=== PATIENT | male | born 1935 | race Caucasian/White ===

== ENCOUNTER 2016-11-07 22:39 | Inpatient (IN) | payer OTHER ==
--- NOTE | ~2016-11-07 | CN ---
Consultation Report [facility] [address] [place]. [address] NAME: NICOLE SMITH JR : 39 STATUS : ADM Tristian PAT#: [id number] AGE: 81 ADM/REG DATE : 11/07/16 MR#: [id number] REPORT SERV DATE: 11/09/16 DICTATED BY: RADHA HAGEN DATE: 11/08/16 REPORT STATUS : Draft TRANSCRIBED BY: MODL DATE: 11/08/16 CONSULT REPORT DATE OF CONSULTATION: 11/08/2016 REASON FOR CONSULTATION: Multivessel coronary artery disease. HISTORY OF PRESENT ILLNESS: This is a pleasant 81-year-old, male, who has a history of coronary artery disease, status post CAB x3 in 1999 at [facility]. He also has a history of high blood pressure, hyperlipidemia, and type 2 diabetes mellitus. He has recently been diagnosed with bladder cancer and has been undergoing radiation treatments under the care of Dr. Hadley. He has previously seen by Dr. Hua, but did not tolerate chemotherapy. He presented to the emergency room on 11/07/2016 with complaints of chest pain and nausea and vomiting. He was found to have an elevated troponin at 0.5. Taken for cardiac catheterization today by Dr. Sanchez and have multivessel coronary artery disease including a 70% stenosis to his left main, 70% mid circumflex, and 90% 2nd obtuse marginal. Chronic total occlusion of his proximal RCA. He had a patent MUÑIZ to LAD graft, a total occlusion of the SVG to the 1st diagonal, and a total occlusion of his SVG to PDA. There is no mention of valvular abnormality. An echocardiogram was performed today but report is currently pending. CT Surgery was consulted for redo CAB. The patient did have a CT angiogram of his aorta to rule out any type of aortic abnormality or dissection, and it subsequently showed some hyperdensities in his liver concerning for metastatic disease. Currently, the patient is recovering after cardiac catheterization with no complaints of chest pain or shortness of breath. He is on a heparin drip. PAST MEDICAL HISTORY: As mentioned above, coronary artery disease, status post CAB; hypertension; hyperlipidemia; obesity; type 2 diabetes mellitus; and bladder cancer. SURGICAL HISTORY: CAB x3 in 1999 at [facility], appendectomy, and bilateral carpal tunnel. SOCIAL HISTORY: He is with several grown children. No history of alcohol abuse, use of illicit drugs, or tobacco. FAMILY HISTORY: Significant for diabetes. ALLERGIES: QUINIDINE, MSG, HYDROCHLOROTHIAZIDE, TRIAMTERENE, AND PENICILLIN. HOME MEDICATIONS: Aspirin 325 mg p.o. daily, vitamin D 2000 units p.o. weekly, cranberry capsule 425 mg p.o. daily, Kandace/tamsulosin 0.5/0.4 mg one cap p.o. daily, Lyndsey 180 mg p.o. daily, Neurontin 300 mg p.o. three times a day, hydrocodone 5/325 one tab p.o. q.4 hours as needed, iron tablets as directed, Imdur 30 mg p.o. daily, levothyroxine 75 mcg p.o. daily, Glucophage 1000 mg p.o. twice a day, Toprol-XL 25 mg p.o. daily, multivitamin one tab p.o. daily, nitroglycerin 0.4 mg tabs use as directed, and simvastatin 40 mg p.o. at Consultation Report [place] [id number] [place]. [address] NAME: NICOLE SMITH : 37 STATUS : ADM Tristian PAT#: [id number] AGE: 81 ADM/REG DATE : 11/07/16 MR#: [id number] REPORT SERV DATE: 11/09/16 DICTATED BY: RADHA HAGEN DATE: 11/08/16 REPORT STATUS : Draft TRANSCRIBED BY: NICK DATE: 11/08/16 bedtime. REVIEW OF SYSTEMS: A 10-point review of systems was obtained and is negative other than HPI. PHYSICAL EXAMINATION: VITAL SIGNS: From today, temperature 97.9, heart rate 75, blood pressure 115/57, respiratory rate 16, and O2 saturation 97% on 2 L. White blood cell count 13.9, hemoglobin 14.5, hematocrit 42.7, and platelets 166. Sodium 140, potassium 3.9, chloride 104, bicarbonate 24, BUN 12, creatinine 0.87, glucose 156, and hemoglobin A1c 6.9. GENERAL: A pleasant, obese, male, in no acute distress. HEENT: Head is normocephalic and atraumatic. Sclerae are clear. NECK: Supple. NEURO: Alert and oriented x3. Pupils exhibit PERRLA. LUNGS: Clear to auscultation bilaterally with normal effort. CARDIAC: S1, S2. No murmurs, rubs, or gallops. ABDOMEN: Soft, obese, and nontender with active bowel sounds. EXTREMITIES: Free of cyanosis, clubbing, or edema. ASSESSMENT AND PLAN: This is a 81-year-old male with history of coronary artery disease, status post CAB x3 in 1999, has been followed by Dr. Sanchez as an outpatient, came in with chest pain and nausea and vomiting, elevated troponin consistent with NSTEMI. He was taken for cardiac catheterization today which showed multivessel disease as described above and total occlusion of his SVG to PDA graft and SVG to 1st diagonal graft. The patient needs a redo CAB x2 or 3 vessels. We discussed the plan of care with Dr. Mccray. We will begin our workup. We would like evaluation by [facility] as he is known to Dr. Hua and Dr. Hadley with a history of bladder cancer, currently undergoing radiation treatment, and he has had a recent CT angiogram of his aorta which subsequently found some hyperdensities in his liver concerning for possible metastases. We would need to rule this out prior to proceeding with surgery. We will also get a CT angiogram of his chest to look at his internal mammary artery as well as carotid ultrasound and bilateral lower extremity venous mapping. As for right now, he would be considered a high risk redo CAB with ACS risk calculates at around 4.1% mortality and a 23.4% morbidity mortality. I discussed this in length with the patient and his family, and they are willing to proceed with surgery although they are concerned about how he would do with a redo surgery. We would like to thank you for this consultation. We will plan to await further workup prior to making plans for surgery with anticipated surgery later this week as long as there is no evidence of metastatic disease. NSW/MODL Radha Blackburn Consultation Report [place] [id number] [place] [address] NAME: NICOLE SMITH JR : 37 STATUS : ADM Tristian PAT#: [id number] AGE: 81 ADM/REG DATE : 11/07/16 MR#: [id number] REPORT SERV DATE: 11/09/16 DICTATED BY: RADHA HAGEN DATE: 11/08/16 REPORT STATUS : Draft TRANSCRIBED BY: NICK DATE: 11/08/16 AIMEE Hagen / [id number] CC: MD Mina Timmons Jr., D.O.
--- NOTE | ~2016-11-07 | DS ---
Discharge Summary [place] [address] [place]. [address] NAME: NICOLE SMITH JR : 37 STATUS : DIS IN PAT#: [id number] AGE: 81 ADM/REG DATE : 11/07/16 MR#: [id number] REPORT SERV DATE: 11/25/16 DICTATED BY: LARY ROTHMAN DATE: 11/24/16 REPORT STATUS : Draft TRANSCRIBED BY: MODL DATE: 11/24/16 ADMISSION DATE: 11/07/2016 DISCHARGE DATE: 11/24/2016 DIAGNOSES OF DISCHARGE: 1. Coronary artery disease, status post redo CABG, status post cardiogenic shock. 2. Non-ST myocardial infarction. 3. Acute cholecystitis, asymptomatic. 4. Clostridium difficile colitis. 5. Diabetes type 2, insulin dependent. 6. Hyperlipidemia. 7. Postoperative respiratory failure, resolved. CONSULTANTS ON THE CASE: Dr. Sanchez, Cardiology; Dr. Mccray, Cardiothoracic Surgery; Dr. Roc Henry and Dr. Josh Carrizales, Infectious Disease; Dr. Rollins, General Surgery. PROCEDURES DONE DURING THIS HOSPITALIZATION: Include: 1. Redo of the CABG. 2. Cardiac catheterization performed on 11/08/2016 showing multivessel disease with recommendation of coronary artery bypass surgery. OTHER TESTS DONE DURING THIS HOSPITALIZATION: Include CT of the abdomen and pelvis on 11/07/2016 showing cholelithiasis, but no acute cholecystitis. CTA of the aorta that showed some ectasia, but no aneurysm. No other abnormalities that could be identified. Degenerative joint disease, osteoarthritis. Liver CT with or without contrast showed gallstones, but also some concern that an acute cholecystitis might be present. Chest x- ray, portable, has shown that there was some vascular congestion postoperatively. HOSPITAL COURSE: Mr. Smith is a very pleasant 81 years old gentleman, who has been admitted on 11/08/2016 with chest pain, nausea, vomiting, and diarrhea. It is very important to note that during this hospitalization, the patient has been diagnosed with multivessel disease that required a CABG performed by Dr. Mccray from CT Surgery on 11/12/2016 due to a non-ST PA diagnosed on admission with redo of CABG. The patient, as I said, was admitted initially with nausea, vomiting, and diarrhea, and presumed diagnosis of gastroenteritis. However, also, some atypical chest pain. The patient has been seen by Dr. Sanchez from Cardiology Service. Subsequently, he did have a cardiac catheterization, which showed that the patient has multivessel disease and recommendation was for him to have redo of the CABG. Cardiology felt that the patient may have a non-ST PA and he underwent CABG by Dr. Mccray. Postoperatively, the patient developed some cardiogenic shock that required extensive pressors as well as some balloon pump subsequently in ICU, he has been followed by Critical Care. He has been extubated, slowly weaned from pressors and ionotropic agent as well as diuretics. The patient, however, developed also nausea, vomiting, and diarrhea. CT initially showed that the patient did have some acute cholecystitis. So as a result, he has been started on antibiotics and an Infectious Disease consult with Dr. Henry has been requested. The patient initially has been started on cefepime and Flagyl, and a Surgery consult has been requested. It is important to note that subsequently after antibiotics, Discharge Summary [address] [address] NAME: NICOLE SMITH : 37 STATUS : DIS IN PAT#: [id number] AGE: 81 ADM/REG DATE : 11/07/16 MR#: [id number] REPORT SERV DATE: 11/25/16 DICTATED BY: LARY ROTHMAN DATE: 11/24/16 REPORT STATUS : Draft TRANSCRIBED BY: NICK DATE: 11/24/16 the patient developed diarrhea and as a result, the patient's stools have been checked and found to have been C diff positive, for which Dr. Henry stopped the antibiotics and placed him on oral vancomycin. Due to his acute cholecystitis, the patient has been seen in consult by Dr. Rollins for Surgery. The patient, however, improved with antibiotic treatment and remained asymptomatic and indication for surgery at the present time has been made due to the fact that the patient required CABG and fairly extensive postoperative recovery. He has been started on a diet, and he advance as tolerated. He did not have any nausea or vomiting. No abdominal pain. His diarrhea resolved and as a result, the patient remained asymptomatic, and so the plan was to withhold any cholecystectomy at this time until the patient improves and until Dr. Sanchez will evaluate the patient. Dr. Rollins can be seeing the patient as an outpatient after Cardiology clears him for possible cholecystectomy. So obviously, the patient continued to improve and he has been transferred out of the unit to a monitored bed. The patient started to work with Physical Therapy and recommendation for inpatient rehab has been done as well. The patient has been evaluated by [facility] and on 11/24/2016, the patient has been ready and approved to be transferred to inpatient rehab. MEDICATIONS AT DISCHARGE: Would include ascorbic acid 1000 mg p.o. b.i.d.; aspirin 81 p.o. daily; Lipitor 80 mg at bedtime; Plavix 75 p.o. daily; vitamin D 2000 units p.o. Tuesday; Avodart 0.5 mg p.o. with breakfast; also gabapentin 300 mg p.o. t.i.d.; insulin sliding scale level 2; Synthroid 75 mcg p.o. daily; Claritin 10 mg p.o. daily; multivitamin one tablet p.o. daily; Lopressor 25 b.i.d.; Senokot two tablets p.o. b.i.d. p.r.n. constipation; Flomax 0.4 p.o. daily; vancomycin 125 p.o. q.6 hours for two weeks, then 125 p.o. every eight hours for one week, then 125 p.o. q.12 hours for one week, then 125 p.o. daily for one week; zinc sulfate 220 mg p.o. daily as well as Tylenol p.r.n.; hydrocodone p.r.n.; Zofran p.r.n. The patient has been advised to follow up with his primary care provider, Dr. Mina Garber, in one week after discharge. Followup appointment with Dr. Sanchez, Cardiology, in two to three weeks after discharge. Followup appointment with Dr. Mccray from CT Surgery in four weeks after discharge. Followup appointment with Dr. Rollins from Surgery in four to six weeks after discharge. That has been discussed extensively with the patient. All the questions have been answered in full. I did spend more than 30 minutes at discharging the patient Nicole Smith, medication reconciliation, discharge summary, discharge instruction, and written prescriptions as well. CF/MODL Lary Rothman M.D. / [id number] CC: Lary Rothman M.D. Discharge Summary [address] [place]. [address] NAME: NICOLE SMITH JR : 37 STATUS : DIS IN PAT#: [id number] AGE: 81 ADM/REG DATE : 11/07/16 MR#: [id number] REPORT SERV DATE: 11/25/16 DICTATED BY: LARY ROTHMAN DATE: 11/24/16 REPORT STATUS : Draft TRANSCRIBED BY: MODL DATE: 11/24/16 Mina Garber Jr., D.O. Raulito Rollins M.D. MD Artur Eastman III, M.D., [facility], [facility]
--- NOTE | ~2016-11-07 | OP ---
Record Of Operation [facility] [address] [place]. [address] NAME: NICOLE SMITH JR : 37 STATUS : ADM IN PAT#: [id number] AGE: 81 ADM/REG DATE : 11/07/16 MR#: [id number] REPORT SERV DATE: 11/15/16 DICTATED BY: RADHA HAGEN DATE: 11/15/16 REPORT STATUS : Draft TRANSCRIBED BY: NICK DATE: 11/15/16 DATE OF PROCEDURE: 11/15/2016 PROCEDURE REPORT This is Radha Hagen, nurse practitioner, with [facility]. PROCEDURE PERFORMED: Removal of intra-aortic balloon pump. HISTORY AND PHYSICAL: This is a 81-year-old male who has a history of coronary artery disease, status post CAB, presented on 11/07/2016 with NSTEMI, was taken for redo CAB on 11/12/2016, by Dr. James Mccray. The patient was showing signs of cardiogenic shock, so an intraaortic balloon pump was placed. Today is postop day three, and he is no longer on Primacor. Balloon pump is at one to three and he is on five of dobutamine. Balloon pump was changed to one to four with pressures and cardiac output staying stable. Patient meets criteria to have intraaortic balloon pump removed. PROCEDURE IN DETAIL: The patient is sedated, but arousable. The procedure was explained to him. He was positioned in a supine position. Pedal pulses and left femoral groin pulse were identified and marked, Lu BRAVO at the bedside. The balloon pump was placed and two standby sutures holding tubing in place were removed. The balloon pump was then extracted and removed via the left groin. Manual pressure was held with no significant bleeding at this site. Pressure was held for 30 minutes until hemostasis was obtained. Then pressure was released. Pressure bandage was placed. Vital signs remained stable throughout the entire procedure. The patient tolerated it well. JAYLENE/NICK Radha Hagen NP / [id number] CC: MD Mina Montalvo Jr., Patricia.OSarah
--- NOTE | ~2016-11-07 | HP ---
History And Physical [place] [address] [place]. [address] NAME: NICOLE SMITH JR : 37 STATUS : ADM Tristian PAT#: [id number] AGE: 81 ADM/REG DATE : 11/07/16 MR#: [id number] REPORT SERV DATE: 11/08/16 DICTATED BY: JOSE RAMON MARIN DATE: 11/08/16 REPORT STATUS : Draft TRANSCRIBED BY: MODL DATE: 11/08/16 DATE OF ADMISSION: 11/07/2016 CHIEF COMPLAINT: Chest pain, nausea, vomiting, and diarrhea. HISTORY OF PRESENT ILLNESS: This is a 81-year-old gentleman with history of hypertension, diabetes, hyperlipidemia, and coronary disease, presenting with chest pain, nausea, vomiting, and diarrhea. The patient reports that he was going about a fairly normal day up until two in the afternoon when he started having a sudden onset of sharp chest pain. It was quite intense, and the patient was actually worried about having a heart attack. The patient then started having intractable nausea, vomiting as well as diarrhea where the patient was having vomiting and diarrhea at the same time. The patient really did not notice any shortness of breath or palpitations. The pain was pretty much isolated to the central chest as well as abdomen. The patient came to the ER for further evaluation and care. In the ER, the patient was found to be afebrile and hemodynamically stable. Initial lab evaluation was actually all very benign. CT of the abdomen and pelvis was also nonacute. The patient was given some morphine antiemetics and GI cocktail, which relieved a lot of his symptoms. However, the patient was still quite worried about a possible heart attack, and the patient was still complaining of sharp chest pains that Internal Medicine consultation was requested for admission of the patient for further evaluation and care. REVIEW OF SYSTEMS: The patient denies any fevers or chills. Also, 14-point review of systems reviewed and negative other than mentioned above. MEDICATIONS: The list is still pending at this time. ALLERGIES: 1. QUINIDINE. 2. MONOSODIUM GLUTAMATE. 3. HYDROCHLOROTHIAZIDE. 4. TRIAMTERENE. 5. PENICILLIN V. PAST MEDICAL HISTORY: 1. Hypertension. 2. Hyperlipidemia. 3. Diabetes type 2. 4. Coronary artery disease, for which the patient follows with Dr. Sanchez. PAST SURGICAL HISTORY: 1. Triple bypass surgery. 2. Appendectomy. 3. Bilateral carpal tunnel release. History And Physical [address] [place]. [address] NAME: NICOLE SMITH JR : 37 STATUS : ADM Tristian PAT#: [id number] AGE: 81 ADM/REG DATE : 11/07/16 MR#: [id number] REPORT SERV DATE: 11/08/16 DICTATED BY: JOSE RAMON MARIN DATE: 11/08/16 REPORT STATUS : Draft TRANSCRIBED BY: NICK DATE: 11/08/16 FAMILY HISTORY: Diabetes. SOCIAL HISTORY: The patient does not smoke, drink alcohol, or use any illicit drugs. The patient lives at home with his . PHYSICAL EXAMINATION: VITAL SIGNS: Temperature 97.3, blood pressure 188/80, pulse 63, respiratory rate is 12, saturating 100% on room air. GENERAL: The patient is alert and oriented x3 with no focal neurologic deficits. The patient is awake, does not appear to be in acute distress, and he is cooperative. NECK: No JVD. No lymphadenopathy. Normal thyroid. CHEST: There is a midline sternotomy scar but otherwise no tenderness to palpation. LUNGS: Clear to auscultation bilaterally with normal respiratory effort on room air. CARDIOVASCULAR: Regular rate and rhythm with no murmurs, rubs, or gallops, and PMI is nondisplaced. ABDOMEN: Soft, nontender with active bowel sounds and no organomegaly. EXTREMITIES: No edema. Normal distal pulses. No calf tenderness. SKIN: Clean, dry, warm, and intact. LABORATORY DATA: Sodium is 141, potassium 3.9, chloride 104, BUN 16, creatinine 1.09, glucose 186, calcium 9.8. Magnesium 1.4. LFTs and lipase are within normal limits. White blood cell count is 9.8, hemoglobin 14.4, platelets 153. INR is 1.1. Troponin is less than 0.02. Urinalysis is negative. CT of the abdomen and pelvis was nonacute. ASSESSMENT: This is a 81-year-old gentleman with history of hypertension, diabetes, hyperlipidemia, and coronary artery disease, presenting with acute nausea, vomiting, diarrhea, and chest pain. 1. Acute nausea, vomiting, and diarrhea, likely secondary to viral gastroenteritis. The patient's symptoms are controlled in the ER. 2. Atypical chest pain, likely gastrointestinal in origin, especially since it responded to GI cocktail. Still, the patient is very anxious and is very worried about a possible heart attack despite reassurance. 3. Hypertension. 4. Hyperlipidemia. 5. Diabetes type 2. 6. Coronary artery disease. PLAN: The plan is to admit the patient for observation overnight. The patient will be monitored on the telemetry monitoring. The patient will be given IV fluid resuscitation along with supportive care with antiemetics and pain control. For the atypical chest pain, I will simply check serial cardiac enzymes to rule out acute coronary syndrome. Otherwise, for the rest of stable past medical conditions including hypertension, diabetes, hyperlipidemia, coronary artery disease, I will continue home medications when the home medication list becomes available. Standard DVT prophylaxis. The patient is full code at [facility] [address] [address] NAME: NICOLE SMITH JR : 37 STATUS : ADM Tristian PAT#: [id number] AGE: 81 ADM/REG DATE : 11/07/16 MR#: [id number] REPORT SERV DATE: 11/08/16 DICTATED BY: JOSE RAMON MARIN DATE: 11/08/16 REPORT STATUS : Draft TRANSCRIBED BY: NICK DATE: 11/08/16 this time. DEON/NICK Jose Ramon Marin MD / [id number]
--- NOTE | ~2016-11-07 | IDS ---
Interim Discharge Summary [facility] [address] [place]. [address] NAME: NICOLE SMITH JR : 39 STATUS : ADM IN [facility]#: [id number] AGE: 81 ADM/REG DATE : 11/07/16 MR#: [id number] REPORT SERV DATE: 11/16/16 DICTATED BY: MARQUEZ BORREGO DATE: 11/15/16 REPORT STATUS : Draft TRANSCRIBED BY: MODJanis DATE: 11/15/16 ADMISSION DATE: 11/07/2016 DISCHARGE DATE: PROCEDURES DONE: 11/12/[address] Mccray: Preop diagnosis, non-ST KS, three-vessel CABG, acute cholecystitis, hypertension, hyperlipidemia. Postop diagnosis redo of the bypass. HISTORY OF PRESENT ILLNESS: A 81-year-old white male with past medical history of coronary artery disease, status post CABG x3; diabetes, type 2; hyperlipidemia; hypertension; history of bladder cancer, followed by [facility] concerning with acute nausea, vomiting, and diarrhea, unknown duration. The patient was admitted with this acute nausea, vomiting, and diarrhea and initially diagnosis of acute gastroenteritis; however, the patient also was presenting with atypical chest pain. The patient was seen by Cardiology and subsequently had a heart catheterization, which showed MUÑIZ to LAD is patent. SVG to diagonal, total occlusion SVG to PDA and total occlusion. At the time of heart catheterization, the patient was either having a redo of CABG or medical treatment. Unfortunately, the patient had a recurrence of his chest pain. Cardiology felt that the patient has a post infarct while after having an acute non-ST KS. The patient had to undergo a redo of CABG with Dr. Mccray. Unfortunately, the patient required extensive pressors as well as a balloon pump in order to maintain his pressure. Subsequently, the patient was able to be extubated and slowly being weaned from Bumex as well as his Levophed and dobutamine. At this time, the patient is improving dramatically from his clinically guarded condition. DIAGNOSES ON DISCHARGE: 1. Next acute nausea vomiting and diarrhea, questionable secondary to gastroenteritis. 2. Chest pain secondary to elevation myocardial infarction, coupled with postop infarction angina. Currently, the patient underwent bypass for surgical correction. 3. Cardiogenic shock secondary to chest pain. Currently, the patient is on Bumex drip, slowly being titrated off. 4. Postop respiratory failure, currently resolved. The patient is extubated on 11/15/2016. 5. Acute cholecystitis. The patient developed acute cholecystitis while hospital stay. Surgery is currently on consult. At this time, the patient is at CVICU. Questionable, as it is time for a laparoscopic cholecystectomy. We will defer to Surgery and call the etiology for time. 6. Diabetes type 2, continue insulin drip at this time. The patient has been able to take p.o. intake at this time due to status post extubation. FARHANA/NICK Marquez Poon Interim Discharge Summary [address] [address] NAME: NICOLE SMITH JR : 39 STATUS : ADM IN [facility]#: [id number] AGE: 81 ADM/REG DATE : 11/07/16 MR#: [id number] REPORT SERV DATE: 11/16/16 DICTATED BY: MARQUEZ BORREGO DATE: 11/15/16 REPORT STATUS : Draft TRANSCRIBED BY: MODL DATE: 11/15/16 MD Marco / [id number] CC: MD Mina Montalvo Jr., D.O.
--- NOTE | ~2016-11-07 | IDS ---
Interim Discharge Summary [facility] [address] [place]. [address] NAME: NICOLE SMITH JR : 39 STATUS : ADM IN [facility]#: [id number] AGE: 81 ADM/REG DATE : 11/07/16 MR#: [id number] REPORT SERV DATE: 11/22/16 DICTATED BY: EBONY CHOWDHURY DATE: 11/22/16 REPORT STATUS : Draft TRANSCRIBED BY: NICK DATE: 11/22/16 ADMISSION DATE: 11/07/2016 DISCHARGE DATE: DIAGNOSES: 1. Coronary artery disease, status post redo CABG. 2. Caj-XY-tacgpecll myocardial infarction per Dr. Lara report. 3. Acute cholecystitis. 4. Clostridium difficile colitis. 5. Type 2 diabetes. 6. Hyperlipidemia. 7. Postop cardiogenic shock, resolved. PROCEDURES: Redo CABG. CONSULTANTS: 1. Cardiothoracic Surgery. 2. Cardiology with Dr. Sanchez. 3. Infectious Disease Dr. Roc Henry and Dr. Josh Carrizales. 4. Dr. Rollins with General Surgery. HOSPITALIST: 1. Dr. Marin. 2. Dr. Lara. 3. Dr. Bryan Connors. 4. Dr. Chowdhury. HOSPITAL COURSE: This interim report is for this interim week, please refer to interim summary from Dr. Lara for further details. The patient remained in CVICU and found to be positive for C diff and placed on oral vancomycin by Infectious Disease. Also, the patient's cefepime and IV Flagyl was discontinued by Infectious Disease for which the patient was being treated for acute cholecystitis. He was initially seen by Dr. Rollins prior to me staffing the patient for acute cholecystitis. The patient remained asymptomatic throughout this week and the plan is for the patient to withhold on any cholecystectomy at this time until approved by Dr. Sanchez, and most likely the patient to see Dr. Rollins as an outpatient for surgery after approval by Dr. Pollock. However, the patient needs Cardiac approval considering of status post redo CABG with an NSTEMI. The patient continued to improve clinically and was transferred out of the unit to a cardiac telemetry. The patient continued to do well. He remains afebrile and is eating well. No abdominal pain. No nausea or vomiting. The patient is well aware of the importance of following up with Dr. Pollock for clearance for his cholecystectomy in the future, but surgery is on hold at this time per recommendations. The patient initially today was planned for possible discharge to [facility], however, apparently it was not the patient's first choice and the patient preferred [facility], therefore, case workers are still working at this time for approval. Interim Discharge Summary [place] [address] [place]. [address] NAME: NICOLE SMITH : 37 STATUS : ADM IN [facility]#: [id number] AGE: 81 ADM/REG DATE : 11/07/16 MR#: [id number] REPORT SERV DATE: 11/22/16 DICTATED BY: EBONY CHOWDHURY DATE: 11/22/16 REPORT STATUS : Draft TRANSCRIBED BY: NICK DATE: 11/22/16 The patient will be followed by Dr. Lary Rothman, who will attend to this patient's care initiating on 11/23/2016. Expected discharge to rehab possibly tomorrow if approved per the patient's choice. [facility]/NICK Ebony Chowdhury M.D. / [id number] CC: Dami Regan Jr., D.OSarah
--- NOTE | ~2016-11-07 | OP ---
Record Of Operation [facility] [address] [place]. [address] NAME: NICOLE LEVY JR : 39 STATUS : ADM IN PAT#: [id number] AGE: 81 ADM/REG DATE : 11/07/16 MR#: [id number] REPORT SERV DATE: 11/23/16 DICTATED BY: BARB SANCHEZ III DATE: 11/23/16 REPORT STATUS : Draft TRANSCRIBED BY: MODJanis DATE: 11/23/16 DATE OF PROCEDURE: 11/08/2016 PROCEDURAL ACQUISITIONS EDITOR: Barb Sanchez M.D., [facility], [facility]. INDICATIONS: Mr. Nicole Levy is a 81-year-old white male with six other risk factors for coronary atherosclerotic disease (i.e. 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 The patient was referred for cardiac catheterization to define coronary anatomy, graft patency, and left ventricular functions. Options, potential risks and benefits of the procedure were discussed with the patient. The patient accepted these risks and wished to proceed. PROCEDURE DESCRIPTION: 1. Limited right iliofemoral angiogram. 2. Left heart catheterization. 3. Left ventriculogram. 4. Left and right coronary angiograms. 5. Saphenous vein angiograms. 6. Left internal mammary angiograms. CONTRAST: Iopamidol 150 mL. MEDICATIONS: 1. Midazolam 1 mg intravenously. 2. Sublimaze 50 mcg intravenously. EQUIPMENTS: 1. 4-Tajik Cook micropuncture with stiffened cannula (RFA). 2. 0.035 inch PTFE coated, 150 cm, 3 mm J [employer] [place] guidewire. 3. 6-Tajik, 10 cm Terumo Vass sheath. 4. 6-Tajik, 100 cm #4 curve left coronary artery Silvana catheter. 5. 6-Tajik, 100 cm #4 curve right coronary artery Silvana catheter. 6. 6-Tajik, 110 cm pigtail-145 catheter. 7. 6-Tajik Weaver Perclose ProGlide vascular closure device. COMPLICATIONS: None. Record Of Operation [place] [id number] [place]. [address] NAME: NICOLE LEVY JR : 39 STATUS : ADM IN PAT#: [id number] AGE: 81 ADM/REG DATE : 11/07/16 MR#: [id number] REPORT SERV DATE: 11/23/16 DICTATED BY: BARB SANCHEZ III DATE: 11/23/16 REPORT STATUS : Draft TRANSCRIBED BY: NICK DATE: 11/23/16 RADIATION DOSE: 584 mGy. ESTIMATED BLOOD LOSS: 5 mL. HEMODYNAMIC DATA: Prior to left ventriculography, the central aortic pressure was 95/45 mmHg. The left ventricular pressure was 103/13 mmHg. ANGIOGRAPHIC DATA: 30-degree GAN right iliofemoral angiography demonstrated extreme tortuosity of the external iliac artery. There were luminal irregularities of the distal external iliac, common femoral, proximal superficial femoral, and proximal femoral profunda arteries. The puncture site was located in the common femoral artery. Single plane, 30-degree GAN left ventriculography demonstrated that the left ventricle was mildly enlarged. There was proximal posterobasal hypokinesis and distal posterobasal akinesis. Otherwise, regional left ventricular systolic function was normal. Global left ventricular systolic function was normal. There was trace mitral regurgitation, resulting from ventricular ectopic activity. There were diaphragmatic pericardial calcifications. The left main coronary artery was a medium to large caliber, long, irregular vessel. There was a radiolucent, eccentric 70% to 90% stenosis involving the distal portion of the left main coronary artery. The left main coronary artery bifurcated into a small to medium caliber left anterior descending and a small caliber, nondominant left circumflex coronary arteries. The left anterior descending coronary artery gave rise to one major septal plant nursery worker and a small caliber diagonal branch, before demonstrating a "flush and fill" phenomenon in its midportion. There was a long, irregular 70% stenosis involving the origin and entire proximal portion of the left anterior descending coronary artery. The remainder of the left anterior descending coronary artery was visualized by injection of the left internal mammary artery graft to the distal portion of that vessel. The left circumflex coronary artery was a small caliber, nondominant, irregular vessel. The left circumflex coronary artery gave rise to a medium caliber first obtuse marginal branch, small caliber second obtuse marginal branch and a small to medium caliber posterolateral segment branch. There was a radiolucent, eccentric 70% stenosis involving the proximal portion of the left circumflex coronary artery, just distal to the origin of the first obtuse marginal branch. There was a long, irregular 40-50% stenosis involving the proximal to midportion of the first obtuse marginal branch. There was an eccentric, radiolucent 90% stenosis involving the origin of the second obtuse marginal branch of the left circumflex coronary artery. The remainder of the left circumflex coronary artery was free of angiographically significant obstructive epicardial coronary artery disease. The right coronary artery was a small to medium caliber, dominant vessel. The right coronary artery gave rise to a conus branch and a sinoatrial branch, before being totally occluded in its proximal portion. The right coronary artery was diffusely irregular. There was a long, irregular 50% stenosis involving the proximal portion of the right coronary Record Of [place] [id number] [place]. [address] NAME: NICOLE LEVY JR : 39 STATUS : ADM IN [facility]#: [id number] AGE: 81 ADM/REG DATE : 11/07/16 MR#: [id number] REPORT SERV DATE: 11/23/16 DICTATED BY: BARB SANCHEZ III DATE: 11/23/16 REPORT STATUS : Draft TRANSCRIBED BY: NICK DATE: 11/23/16 artery, beginning just distal to the origin of the conus branch and extending to the total occlusion. The mid to distal portion of the right coronary artery was visualized faintly and late by right to right and left to right collaterals. The saphenous vein graft to the major diagonal branch of the left anterior descending coronary artery was totally occluded in its proximal portion. The saphenous vein graft to the posterior descending coronary artery was totally occluded in its proximal portion. The left internal mammary artery graft to the distal portion of the left anterior descending coronary artery was patent. The left internal mammary artery graft was a large caliber vessel. There were minor luminal irregularities. There was an eccentric 50% stenosis of the distal portion of the left anterior descending coronary artery, just distal to the anastomotic site. There was a radiolucent, eccentric 70% stenosis involving the distal portion of the left anterior descending coronary artery, just proximal to the anastomotic site. There was compromised antegrade and retrograde flow into the distal portion of the left anterior descending coronary artery. PATIENT DISPOSITION: Coronary Short Stay Unit. CONCLUSIONS: 1. Proximal posterobasal hypokinesis and distal posterobasal akinesis, with normal global left ventricular systolic function. 2. Elevated left ventricular end-diastolic pressure. 3. Left main and three-vessel coronary artery disease, involving the proximal portions of the left anterior descending, left circumflex, and right coronary arteries. 4. Right dominant coronary anatomy. 5. Total proximal occlusion of the saphenous vein graft to the major diagonal branch of the left anterior descending coronary artery. 6. Total proximal occlusion of the saphenous vein graft to the posterior descending coronary artery. 7. Patent left internal mammary artery graft to the distal portion of the left anterior descending coronary artery, with compromised antegrade and retrograde flow. 8. Diaphragmatic pericardial calcification. RECOMMENDATIONS: Coronary artery bypass graft surgery. /NICK Barb Sanchez III, M.D., [facility], [facility] / [id number] Record Of Operation [address] [address] NAME: NICOLE LEVY WALLACE BRITTON : 39 STATUS : ADM IN [facility]#: [id number] AGE: 81 ADM/REG DATE : 11/07/16 MR#: [id number] REPORT SERV DATE: 11/23/16 DICTATED BY: BARB SANCHEZ III DATE: 11/23/16 REPORT STATUS : Draft TRANSCRIBED BY: MODL DATE: 11/23/16 CC: Dami Miller Jr., D.O. Rodney Hua M.D.
--- NOTE | ~2016-11-07 | CN ---
Consultation Report [facility] [address] [place]. [address] NAME: NICOLE SMITH JR : 39 STATUS : ADM IN [facility]#: [id number] AGE: 81 ADM/REG DATE : 11/07/16 MR#: [id number] REPORT SERV DATE: 11/11/16 DICTATED BY: NARAYAN HENRY DATE: 11/11/16 REPORT STATUS : Draft TRANSCRIBED BY: MODJanis DATE: 11/11/16 INFECTIOUS DISEASE CONSULT DATE OF CONSULTATION: REASON FOR REFERRAL: Evaluation and treatment of cholecystitis in a patient who needs urgent coronary artery bypass grafting. HISTORY OF PRESENT ILLNESS: The patient is a 81-year-old male. He has a history of hypertension, diabetes mellitus, hyperlipidemia. He has coronary artery disease, had coronary artery bypass grafting in 1999. He has bladder cancer, for which he is on radiation therapy. On 11/07/2016, he had abrupt onset of severe chest pain, upper abdominal pain associated with intractable nausea and vomiting, and so came into the hospital. His white blood cell count was normal. He had no temperature. Initial CT scan done without contrast showed no pathology. He had an elevated troponin, was evaluated by Cardiology and a cardiac cath done, and has multivessel disease, and a redo bypass has been recommended, and is scheduled for tomorrow. In the meantime, he continued to have abdominal pain, nausea. Repeat imaging was done and a followup CT this time showed distinct changes consistent with cholecystitis. He has been placed on Levaquin and Flagyl. His white blood cell count had gone up the second hospital day, but it is now back to normal, and he remains afebrile. He still has mild abdominal pain and nausea. PAST MEDICAL HISTORY: Otherwise, unremarkable. MEDICATIONS: As mentioned above. ALLERGIES: HE IS ALLERGIC TO PENICILLIN. HE THINKS HE HAD A RASH APPROXIMATELY 35 YEARS AGO. HE IS FOR 60 YEARS. HIS IS WITH HIM IN THE ROOM. PAST SMOKER. NO HISTORY OF ALCOHOL OR SUBSTANCE ABUSE. FAMILY HISTORY: Noncontributory. PHYSICAL EXAMINATION: GENERAL: A nontoxic, elderly male, in no acute distress. He is alert and oriented x3. VITAL SIGNS: His most recent temperature was 99 with a pulse of 90, respirations 18, blood pressure 109/58, and weight 62 kg. HEENT: Sclerae clear. No oral lesions. LUNGS: Clear anteriorly. HEART: Regular rate and rhythm. ABDOMEN: Soft. Mildly tender, right upper quadrant, without guarding or rebound. Positive bowel sounds are heard. EXTREMITIES: Without clubbing, cyanosis, or edema. No skin lesions or rashes are noted. Consultation Report [place] [address] [place]. [address] NAME: NICOLE SMITH JR : 39 STATUS : ADM IN PAT#: [id number] AGE: 81 ADM/REG DATE : 11/07/16 MR#: [id number] REPORT SERV DATE: 11/11/16 DICTATED BY: NARAYAN HENRY DATE: 11/11/16 REPORT STATUS : Draft TRANSCRIBED BY: NICK DATE: 11/11/16 LABORATORY DATA: His white blood cell count when he came in was 9.8, it rachel to 11.3, then was 7.4 this morning with a hematocrit of 38.5, platelets 159, normal differential to white blood cell count. BUN and creatinine are 10 and 0.78. IMPRESSION: 1. Cholecystitis, likely upper gastrointestinal jennifer, alpha strep, Gram-negative rods, anaerobes. 2. Coronary artery disease, for which he needs a redo bypass. RECOMMENDATIONS: 1. I see no reason to hold heart surgery at this time. 2. Should be able to suppress gallbladder disease with antibiotics. We will use cefepime instead of Levaquin and continue Flagyl. 3. I will follow the patient with you. I appreciate very much your consulting on this patient. BRENDAN Narayan Henry M.D. / [id number] CC: MD Mina Montalvo Jr., D.O.
[2016-11-07 19:51] LABS: WBC (NOT ORDERED) (RFLEX) 0 (0-5)
[2016-11-07 19:54] LABS: BASOPHILS 0.1 %; BASOPHILS ABSOLUTE 0.01 10/3/uL (0.0-0.16); EOSINOPHILS 0.3 %; EOSINOPHILS ABSOLUTE 0.03 10/3/uL (0.0-0.53); HEMOGLOBIN 14.4 g/dL (13.6-17.8); IMMATURE GRANULOCYTES 0.5 %; IMMATURE GRANULOCYTES ABSOLUTE 0.05 10/3/uL (0.0-0.11); LYMPHOCYTES 11.4 %; LYMPHOCYTES ABSOLUTE 1.11 10/3/uL (0.67-4.30); MEAN CORPUS HGB CONC 33.5 g/dL (32.0-36.0); MEAN CORPUSCULAR HEMOGLOB 32.3 pg (26.0-34.0); MEAN PLATELET VOLUME 9.9 fL (9.2-13.0); MONOCYTES 0.8 %; MONOCYTES ABSOLUTE 0.08 10/3/uL (0.21-1.20); NEUTROPHILS 86.9 %; NEUTROPHILS ABSOLUTE 8.47 10/3/uL (2.02-8.40); RBC DISTRIBUTION WIDTH 14.1 % (12.0-16.0); RED CELL COUNT 4.46 10/6/uL (4.7-6.1)
[2016-11-07 19:55] LABS: ER CBC TAT 0 Hrs 05 Mins; MANUAL DIFF NO %; MEAN CORPUSCULAR VOLUME 96.4 fL (80-100); PLATELET COUNT 153 10/3/uL (150-400); WHITE BLOOD CELLS 9.8 10/3/uL (4.5-10.5)
[2016-11-07 19:59] LABS: ASCORBIC ACID (UR NOT ORDER) NEG (NEG); BILIRUBIN, URINE NEGATIVE (NEG); ER URINALYSIS TAT 0 Hrs 09 Mins; KETONE, URINE 20 MG/DL (NEG); LEUKOCYTE ESTERASE(NOT OR NEG (NEG); NITRITE (URINE) NEG (NEG)
[2016-11-07 20:03] LABS: INTERNATIONAL NORMAL RATI 1.1 UNITS (-); PARTIAL THROMBO TIME 30.3 SEC (22.5-37.2); PROTIME (NOT ORD) 13.8 SEC (12.0-14.5)
[2016-11-07 20:10] LABS: CALCIUM, SERUM 9.8 MG/DL (8.5-10.4); CHEST PAIN PROFILE TAT 0 Hrs 20 Mins; CHLORIDE, SERUM 104 MMOL/L (96-112); CREATININE 1.09 MG/DL (0.70-1.30); DIRECT BILIRUBIN 0.2 MG/DL (0.0-0.4); GFR AFRICAN AMERICAN 74 ML/MIN (>=60); GFR NON AFRICAN AMERICAN 64 ML/MIN (>=60); POTASSIUM, SERUM 3.9 MMOL/L (3.5-5.3); SGOT(AST) 10 U/L (5-40); SGPT(ALT) 23 U/L (5-65); SODIUM, SERUM 141 MMOL/L (135-148); TROPONIN I <0.02 NG/ML (<0.05)
[2016-11-07 20:11] LABS: ALKALINE PHOSPHATASE 82 U/L (45-117); BUN (BLOOD UREA NITROGEN) 16 MG/DL (6-23); CO2 (CARBON DIOXIDE) 24 MMOL/L (24-34); GLUCOSE, SERUM 186 MG/DL (60-99); INDIRECT BILIRUBIN(NOT ORDER) 0.8 MG/DL (0.1-0.9); TOTAL PROTEIN 7.6 G/DL (6.0-8.5)
[~2016-11-07 22:39] MED LIST: ALLEGRA180 PO; ALLERGY INJ; ASA5GR PO; ASAB PO; CENTRUM PO; CENTRUM TAB1 TAB PO; CHEMOTHERAPY IV; CIP5 PO; COZ50 PO; DIGITEK0.125 MG PO; DIGITEK0.25 MG PO; DULERA 100 MCG/13 GM INH; GLUCOPHAGE1000 MG PO; IMDUR30 PO; JALYN 0.5-0.41 EACH PO; JAYLIN; L20 PO; LAN25 PO; LEVOTHYROXIN50 MCG PO; LEVOTHYROXIN75 MCG PO; LOP50 PO; LORT7 PO; LOTRIMIN AF1 % EX; MAGOX4 PO; MULTIPLE VIT PO; MULTIVITAMI1 PO; NEUR100 PO; NEUR300 PO; NITROSTAT0.4 MG SL; NYSTATPOW TOP; PYR200 PO; TOPXL50 PO; VITAMIN D1000 UNI1 PO; ZESTRIL10 MG PO; ZOCOR40 PO
[2016-11-08] MEDS ORDERED: TOPXL25 PO (01:35)
[2016-11-08] MEDS ORDERED: PCET PO (01:35)
[2016-11-08] MEDS ORDERED: JALYN 0.5-0.41 EACH PO (01:43)
[2016-11-08] MEDS ORDERED: IMDUR30 PO (01:43)
[2016-11-08] MEDS ORDERED: CRANBERRY425 MG PO (01:44)
[2016-11-08] MEDS ORDERED: ALLEGRA180 PO (01:45)
[2016-11-08] MEDS ORDERED: NORCO1 TA1 PO (01:46)
[2016-11-08 05:02] LABS: HEMATOCRIT 42.7 % (40.0-51.0); HEMOGLOBIN 14.5 g/dL (13.6-17.8); MANUAL DIFF YES %; MEAN CORPUSCULAR HEMOGLOB 32.2 pg (26.0-34.0); MEAN CORPUSCULAR VOLUME 94.9 fL (80-100); PLATELET COUNT 166 10/3/uL (150-400); RBC DISTRIBUTION WIDTH 14.3 % (12.0-16.0); WHITE BLOOD CELLS 13.9 10/3/uL (4.5-10.5)
[2016-11-08 05:35] LABS: A/G RATIO 1.1 (0.7-1.9); ALBUMIN 3.7 G/DL (3.5-5.0); CALCIUM, SERUM 9.5 MG/DL (8.5-10.4); CHLORIDE, SERUM 104 MMOL/L (96-112); CHOLESTEROL 153 MG/DL (< 200); CO2 (CARBON DIOXIDE) 24 MMOL/L (24-34); CREATININE 0.87 MG/DL (0.70-1.30); GFR AFRICAN AMERICAN 95 ML/MIN (>=60); GFR NON AFRICAN AMERICAN 82 ML/MIN (>=60); GLOBULIN 3.5 G/DL (2.5-4.1); GLUCOSE, SERUM 156 MG/DL (60-99); POTASSIUM, SERUM 3.9 MMOL/L (3.5-5.3); SGOT(AST) 12 U/L (5-40); SGPT(ALT) 21 U/L (5-65); SODIUM, SERUM 140 MMOL/L (135-148); TOTAL BILIRUBIN 1.2 MG/DL (0-1.2); TOTAL PROTEIN 7.2 G/DL (6.0-8.5)
[2016-11-08 05:37] LABS: BUN (BLOOD UREA NITROGEN) 12 MG/DL (6-23); CHOL/HDL RATIO(NOT ORDER) 2.2 (0-5); HDL CHOLESTEROL 71 MG/DL (> 39); LDL CHOLESTEROL 72 MG/DL (< 130); NON-HDL CHOLESTEROL 82 MG/DL (< 160); TRIGLYCERIDE 52 MG/DL (< 150)
[2016-11-08 05:38] LABS: ALKALINE PHOSPHATASE 69 U/L (45-117)
[2016-11-08 05:39] LABS: TROPONIN I 0.21 NG/ML (<0.05)
[2016-11-08 06:17] LABS: BAND NEUTROPHILS 4 %; LYMPHOCYTES 4 %; LYMPHOCYTES ABSOLUTE (CALC) 0.56 10/3/uL (0.67-4.30); MONOCYTES 9 %; MONOCYTES ABSOLUTE (CALC) 1.25 10/3/uL (0.21-1.20); NEUTROPHILS ABSOLUTE (CALC) 12.09 10/3/uL (2.02-8.40); PLATELET ESTIMATE ADQ (ADEQUATE); RBC MORPHOLOGY NORM (NORMAL); SEGMENTED NEUTROPHIL (0) 83 %; TOTAL NUCLEATED CELLS 100
[2016-11-09 06:17] LABS: HEMATOCRIT 40.2 % (40.0-51.0); HEMOGLOBIN 13.2 g/dL (13.6-17.8); MANUAL DIFF YES %; MEAN CORPUS HGB CONC 32.8 g/dL (32.0-36.0); MEAN CORPUSCULAR HEMOGLOB 32.8 pg (26.0-34.0); MEAN PLATELET VOLUME 9.6 fL (9.2-13.0); PLATELET COUNT 131 10/3/uL (150-400); RBC DISTRIBUTION WIDTH 14.8 % (12.0-16.0); RED CELL COUNT 4.02 10/6/uL (4.7-6.1); WHITE BLOOD CELLS 11.3 10/3/uL (4.5-10.5)
[2016-11-09 06:38] LABS: BAND NEUTROPHILS 2 %; EOSINOPHILS 2 %; EOSINOPHILS ABSOLUTE (CALC) 0.23 10/3/uL (0.0-0.53); LYMPHOCYTES 8 %; MACROCYTES 1+ (5-10/OIF) (0-5/OIF); MONOCYTES 12 %; MONOCYTES ABSOLUTE (CALC) 1.36 10/3/uL (0.21-1.20); NEUTROPHILS ABSOLUTE (CALC) 8.81 10/3/uL (2.02-8.40); PLATELET ESTIMATE SLT DEC (ADEQUATE); SEGMENTED NEUTROPHIL (0) 76 %; TOTAL NUCLEATED CELLS 100
[2016-11-09 06:40] LABS: BUN (BLOOD UREA NITROGEN) 9 MG/DL (6-23); CHLORIDE, SERUM 103 MMOL/L (96-112); CO2 (CARBON DIOXIDE) 24 MMOL/L (24-34); CREATININE 0.88 MG/DL (0.70-1.30); GFR AFRICAN AMERICAN 95 ML/MIN (>=60); GFR NON AFRICAN AMERICAN 82 ML/MIN (>=60); GLUCOSE, SERUM 131 MG/DL (60-99); POTASSIUM, SERUM 3.7 MMOL/L (3.5-5.3); SODIUM, SERUM 139 MMOL/L (135-148)
[2016-11-09 06:42] LABS: CALCIUM, SERUM 8.3 MG/DL (8.5-10.4)
[2016-11-10 04:38] LABS: BASOPHILS 0.1 %; BASOPHILS ABSOLUTE 0.01 10/3/uL (0.0-0.16); EOSINOPHILS 1.5 %; EOSINOPHILS ABSOLUTE 0.16 10/3/uL (0.0-0.53); HEMATOCRIT 42.1 % (40.0-51.0); HEMOGLOBIN 13.9 g/dL (13.6-17.8); IMMATURE GRANULOCYTES 0.3 %; IMMATURE GRANULOCYTES ABSOLUTE 0.03 10/3/uL (0.0-0.11); LYMPHOCYTES 4.4 %; LYMPHOCYTES ABSOLUTE 0.48 10/3/uL (0.67-4.30); MEAN CORPUSCULAR HEMOGLOB 32.9 pg (26.0-34.0); MEAN CORPUSCULAR VOLUME 99.8 fL (80-100); MEAN PLATELET VOLUME 10.5 fL (9.2-13.0); MONOCYTES 15.4 %; MONOCYTES ABSOLUTE 1.67 10/3/uL (0.21-1.20); NEUTROPHILS 78.3 %; NEUTROPHILS ABSOLUTE 8.46 10/3/uL (2.02-8.40); PLATELET COUNT 153 10/3/uL (150-400); RBC DISTRIBUTION WIDTH 14.5 % (12.0-16.0); RED CELL COUNT 4.22 10/6/uL (4.7-6.1); WHITE BLOOD CELLS 10.8 10/3/uL (4.5-10.5)
[2016-11-10 04:47] LABS: MANUAL DIFF NO %
[2016-11-10 05:03] LABS: A/G RATIO 0.9 (0.7-1.9); ALBUMIN 3.2 G/DL (3.5-5.0); ALKALINE PHOSPHATASE 76 U/L (45-117); BUN (BLOOD UREA NITROGEN) 7 MG/DL (6-23); CALCIUM, SERUM 8.9 MG/DL (8.5-10.4); CHLORIDE, SERUM 101 MMOL/L (96-112); CO2 (CARBON DIOXIDE) 28 MMOL/L (24-34); CREATININE 0.81 MG/DL (0.70-1.30); GFR AFRICAN AMERICAN 98 ML/MIN (>=60); GFR NON AFRICAN AMERICAN 85 ML/MIN (>=60); GLOBULIN 3.5 G/DL (2.5-4.1); GLUCOSE, SERUM 124 MG/DL (60-99); POTASSIUM, SERUM 3.7 MMOL/L (3.5-5.3); SGOT(AST) 18 U/L (5-40); SGPT(ALT) 21 U/L (5-65); SODIUM, SERUM 140 MMOL/L (135-148); TOTAL PROTEIN 6.7 G/DL (6.0-8.5)
[2016-11-10 05:09] LABS: TOTAL BILIRUBIN 1.7 MG/DL (0-1.2)
[2016-11-11 05:55] LABS: BASOPHILS 0.1 %; BASOPHILS ABSOLUTE 0.01 10/3/uL (0.0-0.16); EOSINOPHILS 3.9 %; EOSINOPHILS ABSOLUTE 0.29 10/3/uL (0.0-0.53); HEMATOCRIT 38.5 % (40.0-51.0); IMMATURE GRANULOCYTES 0.4 %; IMMATURE GRANULOCYTES ABSOLUTE 0.03 10/3/uL (0.0-0.11); LYMPHOCYTES 10.6 %; LYMPHOCYTES ABSOLUTE 0.79 10/3/uL (0.67-4.30); MEAN CORPUS HGB CONC 33.8 g/dL (32.0-36.0); MEAN CORPUSCULAR HEMOGLOB 33.4 pg (26.0-34.0); MEAN PLATELET VOLUME 10.1 fL (9.2-13.0); MONOCYTES 14.4 %; MONOCYTES ABSOLUTE 1.07 10/3/uL (0.21-1.20); NEUTROPHILS 70.6 %; NEUTROPHILS ABSOLUTE 5.24 10/3/uL (2.02-8.40); PLATELET COUNT 159 10/3/uL (150-400); RBC DISTRIBUTION WIDTH 14.3 % (12.0-16.0); RED CELL COUNT 3.89 10/6/uL (4.7-6.1); WHITE BLOOD CELLS 7.4 10/3/uL (4.5-10.5)
[2016-11-11 05:57] LABS: MANUAL DIFF NO %
[2016-11-11 06:14] LABS: A/G RATIO 0.8 (0.7-1.9); ALBUMIN 2.8 G/DL (3.5-5.0); ALKALINE PHOSPHATASE 78 U/L (45-117); BUN (BLOOD UREA NITROGEN) 10 MG/DL (6-23); CALCIUM, SERUM 8.8 MG/DL (8.5-10.4); CHLORIDE, SERUM 105 MMOL/L (96-112); CO2 (CARBON DIOXIDE) 28 MMOL/L (24-34); CREATININE 0.78 MG/DL (0.70-1.30); GFR AFRICAN AMERICAN 100 ML/MIN (>=60); GFR NON AFRICAN AMERICAN 86 ML/MIN (>=60); GLOBULIN 3.4 G/DL (2.5-4.1); GLUCOSE, SERUM 103 MG/DL (60-99); PHOSPHORUS, SERUM 2.3 MG/DL (2.5-4.5); POTASSIUM, SERUM 4.1 MMOL/L (3.5-5.3); SGOT(AST) 22 U/L (5-40); SGPT(ALT) 23 U/L (5-65); SODIUM, SERUM 141 MMOL/L (135-148); TOTAL PROTEIN 6.2 G/DL (6.0-8.5)
[2016-11-12 06:54] LABS: BASOPHILS 0.1 %; BASOPHILS ABSOLUTE 0.01 10/3/uL (0.0-0.16); EOSINOPHILS 1.6 %; EOSINOPHILS ABSOLUTE 0.14 10/3/uL (0.0-0.53); HEMATOCRIT 40.4 % (40.0-51.0); HEMOGLOBIN 13.7 g/dL (13.6-17.8); IMMATURE GRANULOCYTES 0.6 %; IMMATURE GRANULOCYTES ABSOLUTE 0.05 10/3/uL (0.0-0.11); LYMPHOCYTES 12.2 %; LYMPHOCYTES ABSOLUTE 1.09 10/3/uL (0.67-4.30); MEAN CORPUS HGB CONC 33.9 g/dL (32.0-36.0); MEAN CORPUSCULAR HEMOGLOB 33.3 pg (26.0-34.0); MEAN CORPUSCULAR VOLUME 98.3 fL (80-100); MEAN PLATELET VOLUME 9.4 fL (9.2-13.0); MONOCYTES 7.3 %; MONOCYTES ABSOLUTE 0.65 10/3/uL (0.21-1.20); NEUTROPHILS 78.2 %; NEUTROPHILS ABSOLUTE 6.98 10/3/uL (2.02-8.40); PLATELET COUNT 163 10/3/uL (150-400); RBC DISTRIBUTION WIDTH 14.1 % (12.0-16.0); RED CELL COUNT 4.11 10/6/uL (4.7-6.1); WHITE BLOOD CELLS 8.9 10/3/uL (4.5-10.5)
[2016-11-12 06:56] LABS: MANUAL DIFF NO %
[2016-11-12 07:11] LABS: % IRON SAT 17 % (20-50); A/G RATIO 0.8 (0.7-1.9); ALBUMIN 3.1 G/DL (3.5-5.0); ALKALINE PHOSPHATASE 86 U/L (45-117); BUN (BLOOD UREA NITROGEN) 12 MG/DL (6-23); CALCIUM, SERUM 9.2 MG/DL (8.5-10.4); CHLORIDE, SERUM 104 MMOL/L (96-112); CO2 (CARBON DIOXIDE) 27 MMOL/L (24-34); CREATININE 0.98 MG/DL (0.70-1.30); GFR AFRICAN AMERICAN 85 ML/MIN (>=60); GFR NON AFRICAN AMERICAN 73 ML/MIN (>=60); GLOBULIN 3.7 G/DL (2.5-4.1); IRON BINDING CAPACITY 233 MCG/DL (250-450); IRON, SERUM 40 MCG/DL (35-150); POTASSIUM, SERUM 4.3 MMOL/L (3.5-5.3); SGOT(AST) 16 U/L (5-40); SGPT(ALT) 20 U/L (5-65); SODIUM, SERUM 141 MMOL/L (135-148); TOTAL BILIRUBIN 0.7 MG/DL (0-1.2); TOTAL PROTEIN 6.8 G/DL (6.0-8.5)
[2016-11-12 07:12] LABS: GLUCOSE, SERUM 186 MG/DL (60-99)
[2016-11-12 07:47] LABS: INTERNATIONAL NORMAL RATI 1.2 UNITS (-); PARTIAL THROMBO TIME 34.7 SEC (22.5-37.2); PROTIME (NOT ORD) 14.9 SEC (12.0-14.5); TEG - ANGLE 66.4 DEG (53-72); TEG - COAGULATION INDEX 0.3 (-3 TO 3); TEG - RATE 6.8 MIN (5.0-10.0)
[2016-11-12 07:48] LABS: MAX AMP (ADP) 54.5 MM (35-68); TEG PLAVIX/EFFIENT/TICLID(ADP) 23.1 % INHIB (< 40)
[2016-11-12 18:44] LABS: BE (BASE EXCESS) 0.7 MEQ/L (0 +/- 2.5); CARBOXYHEMOGLOBIN 0.2 % (0-3); HCO3 (ACTUAL BICARBONATE) 24.9 MEQ/L (23-27); HEMOBLOGIN CONTENT 11.4 G/DL (14-18); INSTRUMENT SERIAL # 11843; METHEMOGLOBIN 0.5 % (0-3); MODE SIMV; O2 CONTENT 15.5 VOL% (18-24); OPERATOR ID 13715; PCO2 (CO2 TENSION) 38 MMHG (35-45); PO2 (O2 TENSION) 98 MMHG (79-93); SAMPLE Arterial; TIDAL VOLUME 800 ML; pH 7.43 (7.37-7.43)
[2016-11-12 19:27] LABS: HEMATOCRIT 31.4 % (40.0-51.0); HEMOGLOBIN 10.8 g/dL (13.6-17.8); PLATELET COUNT 110 10/3/uL (150-400)
[2016-11-12 19:32] LABS: PARTIAL THROMBO TIME 37.7 SEC (22.5-37.2)
[2016-11-12 19:33] LABS: FIBRINOGEN 349 MG/DL (230-462); INTERNATIONAL NORMAL RATI 1.3 UNITS (-); PROTIME (NOT ORD) 16.5 SEC (12.0-14.5)
[2016-11-12 19:43] LABS: BUN (BLOOD UREA NITROGEN) 12 MG/DL (6-23); CALCIUM, SERUM 9.4 MG/DL (8.5-10.4); CHLORIDE, SERUM 110 MMOL/L (96-112); CO2 (CARBON DIOXIDE) 25 MMOL/L (24-34); CREATININE 1.12 MG/DL (0.70-1.30); GFR AFRICAN AMERICAN 72 ML/MIN (>=60); GFR NON AFRICAN AMERICAN 62 ML/MIN (>=60); GLUCOSE, SERUM 194 MG/DL (60-99); POTASSIUM, SERUM 3.7 MMOL/L (3.5-5.3); SODIUM, SERUM 147 MMOL/L (135-148)
[2016-11-12 22:36] LABS: HEMATOCRIT 33.6 % (40.0-51.0); HEMOGLOBIN 11.6 g/dL (13.6-17.8)
[2016-11-12 22:47] LABS: POTASSIUM, SERUM 3.8 MMOL/L (3.5-5.3)
[2016-11-13 01:45] LABS: POTASSIUM, SERUM 4.2 MMOL/L (3.5-5.3)
[2016-11-13 04:20] LABS: INTERNATIONAL NORMAL RATI 1.2 UNITS (-); PROTIME (NOT ORD) 15.3 SEC (12.0-14.5)
[2016-11-13 04:21] LABS: BUN (BLOOD UREA NITROGEN) 11 MG/DL (6-23); CALCIUM, SERUM 8.7 MG/DL (8.5-10.4); CHLORIDE, SERUM 109 MMOL/L (96-112); CO2 (CARBON DIOXIDE) 26 MMOL/L (24-34); CREATININE 0.97 MG/DL (0.70-1.30); GFR AFRICAN AMERICAN 86 ML/MIN (>=60); GFR NON AFRICAN AMERICAN 74 ML/MIN (>=60); GLUCOSE, SERUM 162 MG/DL (60-99); POTASSIUM, SERUM 3.8 MMOL/L (3.5-5.3); SODIUM, SERUM 145 MMOL/L (135-148)
[2016-11-13 04:32] LABS: BE (BASE EXCESS) 2.3 MEQ/L (0 +/- 2.5); CARBOXYHEMOGLOBIN 0.3 % (0-3); HCO3 (ACTUAL BICARBONATE) 25.9 MEQ/L (23-27); HEMOBLOGIN CONTENT 12.5 G/DL (14-18); INSTRUMENT SERIAL # 11843; METHEMOGLOBIN 0.6 % (0-3); MODE SIMV; O2 CONTENT 16.8 VOL% (18-24); OPERATOR ID 13415; PCO2 (CO2 TENSION) 37 MMHG (35-45); PO2 (O2 TENSION) 84 MMHG (79-93); PRESSURE SUPPORT 10 cm.H2O; SAMPLE Arterial; TIDAL VOLUME 800 ML; pH 7.47 (7.37-7.43)
[2016-11-13 05:07] LABS: BASOPHILS 0 %; EOSINOPHILS 0 %; HEMATOCRIT 34.6 % (40.0-51.0); HEMOGLOBIN 11.7 g/dL (13.6-17.8); IMMATURE GRANULOCYTES 0.8 %; IMMATURE GRANULOCYTES ABSOLUTE 0.11 10/3/uL (0.0-0.11); LYMPHOCYTES 6.9 %; LYMPHOCYTES ABSOLUTE 0.96 10/3/uL (0.67-4.30); MEAN CORPUS HGB CONC 33.8 g/dL (32.0-36.0); MEAN CORPUSCULAR HEMOGLOB 30.9 pg (26.0-34.0); MEAN PLATELET VOLUME 10.2 fL (9.2-13.0); MONOCYTES 6.8 %; MONOCYTES ABSOLUTE 0.94 10/3/uL (0.21-1.20); NEUTROPHILS 85.5 %; RBC DISTRIBUTION WIDTH 16.3 % (12.0-16.0); RED CELL COUNT 3.79 10/6/uL (4.7-6.1)
[2016-11-13 05:11] LABS: MANUAL DIFF NO %; MEAN CORPUSCULAR VOLUME 91.3 fL (80-100); PLATELET COUNT 148 10/3/uL (150-400); WHITE BLOOD CELLS 13.9 10/3/uL (4.5-10.5)
[2016-11-13 11:46] LABS: POTASSIUM, SERUM 4.3 MMOL/L (3.5-5.3)
[2016-11-13 15:17] LABS: HEMATOCRIT 32.3 % (40.0-51.0); HEMOGLOBIN 11.1 g/dL (13.6-17.8)
[2016-11-13 15:26] LABS: POTASSIUM, SERUM 4.6 MMOL/L (3.5-5.3)
[2016-11-13 16:51] LABS: BUN (BLOOD UREA NITROGEN) 12 MG/DL (6-23); CALCIUM, SERUM 8.6 MG/DL (8.5-10.4); CHLORIDE, SERUM 109 MMOL/L (96-112); CO2 (CARBON DIOXIDE) 24 MMOL/L (24-34); CREATININE 1.05 MG/DL (0.70-1.30); GFR AFRICAN AMERICAN 78 ML/MIN (>=60); GFR NON AFRICAN AMERICAN 67 ML/MIN (>=60); GLUCOSE, SERUM 154 MG/DL (60-99); SODIUM, SERUM 142 MMOL/L (135-148)
[2016-11-13 19:29] LABS: POTASSIUM, SERUM 4.3 MMOL/L (3.5-5.3)
[2016-11-14 01:14] LABS: POTASSIUM, SERUM 4.1 MMOL/L (3.5-5.3)
[2016-11-14 04:31] LABS: BASOPHILS 0.1 %; BASOPHILS ABSOLUTE 0.01 10/3/uL (0.0-0.16); EOSINOPHILS 0 %; HEMOGLOBIN 10.5 g/dL (13.6-17.8); IMMATURE GRANULOCYTES 0.4 %; IMMATURE GRANULOCYTES ABSOLUTE 0.05 10/3/uL (0.0-0.11); LYMPHOCYTES 15.2 %; LYMPHOCYTES ABSOLUTE 1.73 10/3/uL (0.67-4.30); MEAN CORPUS HGB CONC 33.9 g/dL (32.0-36.0); MEAN CORPUSCULAR HEMOGLOB 31.1 pg (26.0-34.0); MEAN CORPUSCULAR VOLUME 91.7 fL (80-100); MEAN PLATELET VOLUME 10.3 fL (9.2-13.0); MONOCYTES 6.3 %; MONOCYTES ABSOLUTE 0.71 10/3/uL (0.21-1.20); NEUTROPHILS ABSOLUTE 8.86 10/3/uL (2.02-8.40); PLATELET COUNT 111 10/3/uL (150-400); RBC DISTRIBUTION WIDTH 16.8 % (12.0-16.0); RED CELL COUNT 3.38 10/6/uL (4.7-6.1); WHITE BLOOD CELLS 11.4 10/3/uL (4.5-10.5)
[2016-11-14 04:32] LABS: MANUAL DIFF NO %
[2016-11-14 04:41] LABS: ALBUMIN 3.2 G/DL (3.5-5.0); BUN (BLOOD UREA NITROGEN) 15 MG/DL (6-23); CHLORIDE, SERUM 106 MMOL/L (96-112); CO2 (CARBON DIOXIDE) 28 MMOL/L (24-34); CREATININE 1.16 MG/DL (0.70-1.30); GFR AFRICAN AMERICAN 69 ML/MIN (>=60); GFR NON AFRICAN AMERICAN 60 ML/MIN (>=60); PHOSPHORUS, SERUM 2.7 MG/DL (2.5-4.5); POTASSIUM, SERUM 4.2 MMOL/L (3.5-5.3); SGOT(AST) 53 U/L (5-40); SGPT(ALT) 19 U/L (5-65); SODIUM, SERUM 142 MMOL/L (135-148); TOTAL BILIRUBIN 0.4 MG/DL (0-1.2); TOTAL PROTEIN 5.8 G/DL (6.0-8.5)
[2016-11-14 04:43] LABS: A/G RATIO 1.2 (0.7-1.9); ALKALINE PHOSPHATASE 50 U/L (45-117); GLOBULIN 2.6 G/DL (2.5-4.1); GLUCOSE, SERUM 105 MG/DL (60-99)
[2016-11-14 04:48] LABS: INSTRUMENT SERIAL # 8083; PCO2 (CO2 TENSION) 35 MMHG (35-45); pH 7.47 (7.37-7.43)
[2016-11-14 04:49] LABS: BE (BASE EXCESS) 1.5 MEQ/L (0 +/- 2.5); CARBOXYHEMOGLOBIN 0.3 % (0-3); HCO3 (ACTUAL BICARBONATE) 24.9 MEQ/L (23-27); HEMOBLOGIN CONTENT 10.8 G/DL (14-18); METHEMOGLOBIN 0.1 % (0-3); MODE CMV; O2 CONTENT 14.9 VOL% (18-24); OPERATOR ID 13415; PO2 (O2 TENSION) 98 MMHG (79-93); SAMPLE Arterial; TIDAL VOLUME 600 ML
[2016-11-14 08:44] LABS: POTASSIUM, SERUM 4.1 MMOL/L (3.5-5.3)
[2016-11-14 15:42] LABS: POTASSIUM, SERUM 3.9 MMOL/L (3.5-5.3)
[2016-11-14 20:10] LABS: HEMOGLOBIN 9.1 g/dL (13.6-17.8)
[2016-11-14 20:12] LABS: HEMATOCRIT 26.8 % (40.0-51.0)
[2016-11-14 20:24] LABS: CALCIUM, SERUM 7.9 MG/DL (8.5-10.4); CHLORIDE, SERUM 104 MMOL/L (96-112); CO2 (CARBON DIOXIDE) 28 MMOL/L (24-34); CREATININE 1.18 MG/DL (0.70-1.30); GFR AFRICAN AMERICAN 68 ML/MIN (>=60); GFR NON AFRICAN AMERICAN 58 ML/MIN (>=60); GLUCOSE, SERUM 92 MG/DL (60-99); POTASSIUM, SERUM 4.3 MMOL/L (3.5-5.3); SODIUM, SERUM 142 MMOL/L (135-148)
[2016-11-14 20:25] LABS: BUN (BLOOD UREA NITROGEN) 19 MG/DL (6-23)
[2016-11-15 04:14] LABS: BASOPHILS 0 %; EOSINOPHILS 1.2 %; EOSINOPHILS ABSOLUTE 0.11 10/3/uL (0.0-0.53); HEMOGLOBIN 8.7 g/dL (13.6-17.8); IMMATURE GRANULOCYTES 1.3 %; IMMATURE GRANULOCYTES ABSOLUTE 0.12 10/3/uL (0.0-0.11); LYMPHOCYTES 13.4 %; MEAN CORPUS HGB CONC 33.5 g/dL (32.0-36.0); MEAN CORPUSCULAR HEMOGLOB 31.8 pg (26.0-34.0); MEAN PLATELET VOLUME 9.7 fL (9.2-13.0); MONOCYTES 8.3 %; MONOCYTES ABSOLUTE 0.74 10/3/uL (0.21-1.20); NEUTROPHILS 75.8 %; NEUTROPHILS ABSOLUTE 6.78 10/3/uL (2.02-8.40); PLATELET COUNT 82 10/3/uL (150-400); RBC DISTRIBUTION WIDTH 17.3 % (12.0-16.0); RED CELL COUNT 2.74 10/6/uL (4.7-6.1)
[2016-11-15 04:15] LABS: MANUAL DIFF NO %; MEAN CORPUSCULAR VOLUME 94.9 fL (80-100)
[2016-11-15 04:28] LABS: BUN (BLOOD UREA NITROGEN) 20 MG/DL (6-23); CALCIUM, SERUM 7.9 MG/DL (8.5-10.4); CHLORIDE, SERUM 101 MMOL/L (96-112); CO2 (CARBON DIOXIDE) 31 MMOL/L (24-34); CREATININE 1.15 MG/DL (0.70-1.30); GFR AFRICAN AMERICAN 70 ML/MIN (>=60); GFR NON AFRICAN AMERICAN 60 ML/MIN (>=60); GLUCOSE, SERUM 108 MG/DL (60-99); POTASSIUM, SERUM 4.2 MMOL/L (3.5-5.3); SODIUM, SERUM 142 MMOL/L (135-148)
[2016-11-15 06:35] LABS: POTASSIUM, SERUM 3.8 MMOL/L (3.5-5.3)
[2016-11-15 15:00] LABS: POTASSIUM, SERUM 3.7 MMOL/L (3.5-5.3)
[2016-11-15 18:06] LABS: BE (BASE EXCESS) 6.1 MEQ/L (0 +/- 2.5); CARBOXYHEMOGLOBIN 0.3 % (0-3); DEVICE NC; HEMOBLOGIN CONTENT 10.6 G/DL (14-18); INSTRUMENT SERIAL # 11843; METHEMOGLOBIN 0.3 % (0-3); O2 CONTENT 14.4 VOL% (18-24); PCO2 (CO2 TENSION) 41 MMHG (35-45); PO2 (O2 TENSION) 86 MMHG (79-93); SAMPLE Arterial; pH 7.49 (7.37-7.43)
[2016-11-15 22:08] LABS: POTASSIUM, SERUM 3.8 MMOL/L (3.5-5.3)
[2016-11-16 03:26] LABS: BASOPHILS 0.1 %; BASOPHILS ABSOLUTE 0.02 10/3/uL (0.0-0.16); EOSINOPHILS 1.1 %; EOSINOPHILS ABSOLUTE 0.17 10/3/uL (0.0-0.53); IMMATURE GRANULOCYTES 2.2 %; IMMATURE GRANULOCYTES ABSOLUTE 0.34 10/3/uL (0.0-0.11); LYMPHOCYTES 3.7 %; LYMPHOCYTES ABSOLUTE 0.59 10/3/uL (0.67-4.30); MEAN CORPUS HGB CONC 33.3 g/dL (32.0-36.0); MEAN CORPUSCULAR HEMOGLOB 31.8 pg (26.0-34.0); MEAN CORPUSCULAR VOLUME 95.5 fL (80-100); MEAN PLATELET VOLUME 10.4 fL (9.2-13.0); MONOCYTES 13.6 %; MONOCYTES ABSOLUTE 2.15 10/3/uL (0.21-1.20); NEUTROPHILS 79.3 %; NEUTROPHILS ABSOLUTE 12.49 10/3/uL (2.02-8.40); RBC DISTRIBUTION WIDTH 17.1 % (12.0-16.0)
[2016-11-16 03:30] LABS: HEMATOCRIT 31.5 % (40.0-51.0); HEMOGLOBIN 10.5 g/dL (13.6-17.8); MANUAL DIFF NO %; PLATELET COUNT 115 10/3/uL (150-400); WHITE BLOOD CELLS 15.8 10/3/uL (4.5-10.5)
[2016-11-16 03:40] LABS: BUN (BLOOD UREA NITROGEN) 20 MG/DL (6-23); CALCIUM, SERUM 8.5 MG/DL (8.5-10.4); CHLORIDE, SERUM 97 MMOL/L (96-112); CO2 (CARBON DIOXIDE) 32 MMOL/L (24-34); CREATININE 1.03 MG/DL (0.70-1.30); GFR AFRICAN AMERICAN 80 ML/MIN (>=60); GFR NON AFRICAN AMERICAN 69 ML/MIN (>=60); GLUCOSE, SERUM 117 MG/DL (60-99); POTASSIUM, SERUM 3.9 MMOL/L (3.5-5.3); SODIUM, SERUM 140 MMOL/L (135-148)
[2016-11-16 16:44] LABS: POTASSIUM, SERUM 4.5 MMOL/L (3.5-5.3)
[2016-11-17 04:25] LABS: HEMOGLOBIN 11.5 g/dL (13.6-17.8); MEAN CORPUS HGB CONC 32.9 g/dL (32.0-36.0); MEAN CORPUSCULAR HEMOGLOB 31.8 pg (26.0-34.0); MEAN CORPUSCULAR VOLUME 96.7 fL (80-100); MEAN PLATELET VOLUME 10.5 fL (9.2-13.0); RBC DISTRIBUTION WIDTH 16.9 % (12.0-16.0); RED CELL COUNT 3.62 10/6/uL (4.7-6.1); WHITE BLOOD CELLS 18.8 10/3/uL (4.5-10.5)
[2016-11-17 04:26] LABS: MANUAL DIFF YES %; PLATELET COUNT 162 10/3/uL (150-400)
[2016-11-17 04:30] LABS: CHLORIDE, SERUM 95 MMOL/L (96-112); CO2 (CARBON DIOXIDE) 35 MMOL/L (24-34); CREATININE 1.12 MG/DL (0.70-1.30); GFR AFRICAN AMERICAN 72 ML/MIN (>=60); GFR NON AFRICAN AMERICAN 62 ML/MIN (>=60); POTASSIUM, SERUM 4.1 MMOL/L (3.5-5.3); SODIUM, SERUM 138 MMOL/L (135-148)
[2016-11-17 04:37] LABS: BUN (BLOOD UREA NITROGEN) 31 MG/DL (6-23); GLUCOSE, SERUM 90 MG/DL (60-99)
[2016-11-17 05:10] LABS: SEGMENTED NEUTROPHIL (0) 76 %; TOTAL NUCLEATED CELLS 100
[2016-11-17 05:11] LABS: ANISOCYTOSIS 1+ (5-10/OIF) (0-5/OIF); BAND NEUTROPHILS 6 %; EOSINOPHILS 3 %; EOSINOPHILS ABSOLUTE (CALC) 0.56 10/3/uL (0.0-0.53); IMMATURE GRANS ABSOLUTE (CALC) 0.19 10/3/uL (0.0-0.11); LYMPHOCYTES 6 %; LYMPHOCYTES ABSOLUTE (CALC) 1.13 10/3/uL (0.67-4.30); METAMYELOCYTES 1 %; MONOCYTES 8 %; NEUTROPHILS ABSOLUTE (CALC) 15.42 10/3/uL (2.02-8.40); PLATELET ESTIMATE ADQ (ADEQUATE)
[2016-11-18 04:51] LABS: HEMATOCRIT 33.5 % (40.0-51.0); HEMOGLOBIN 10.7 g/dL (13.6-17.8); MEAN CORPUS HGB CONC 31.9 g/dL (32.0-36.0); MEAN CORPUSCULAR HEMOGLOB 30.8 pg (26.0-34.0); MEAN CORPUSCULAR VOLUME 96.5 fL (80-100); MEAN PLATELET VOLUME 10.3 fL (9.2-13.0); PLATELET COUNT 192 10/3/uL (150-400); RBC DISTRIBUTION WIDTH 16.8 % (12.0-16.0); RED CELL COUNT 3.47 10/6/uL (4.7-6.1)
[2016-11-18 04:54] LABS: MANUAL DIFF YES %
[2016-11-18 05:00] LABS: BUN (BLOOD UREA NITROGEN) 35 MG/DL (6-23); CALCIUM, SERUM 8.9 MG/DL (8.5-10.4); CHLORIDE, SERUM 96 MMOL/L (96-112); CO2 (CARBON DIOXIDE) 34 MMOL/L (24-34); CREATININE 1.32 MG/DL (0.70-1.30); GFR AFRICAN AMERICAN 59 ML/MIN (>=60); GFR NON AFRICAN AMERICAN 51 ML/MIN (>=60); GLUCOSE, SERUM 147 MG/DL (60-99); SODIUM, SERUM 138 MMOL/L (135-148)
[2016-11-18 05:39] LABS: BAND NEUTROPHILS 5 %; IMMATURE GRANS ABSOLUTE (CALC) 0.68 10/3/uL (0.0-0.11); LYMPHOCYTES 5 %; LYMPHOCYTES ABSOLUTE (CALC) 0.85 10/3/uL (0.67-4.30); METAMYELOCYTES 4 %; MONOCYTES 9 %; MONOCYTES ABSOLUTE (CALC) 1.53 10/3/uL (0.21-1.20); NEUTROPHILS ABSOLUTE (CALC) 13.94 10/3/uL (2.02-8.40); PLATELET ESTIMATE ADQ (ADEQUATE); RBC MORPHOLOGY NORM (NORMAL); SEGMENTED NEUTROPHIL (0) 77 %; TOTAL NUCLEATED CELLS 100
[2016-11-19 04:42] LABS: HEMATOCRIT 32.1 % (40.0-51.0); HEMOGLOBIN 10.6 g/dL (13.6-17.8); MEAN CORPUSCULAR HEMOGLOB 32.2 pg (26.0-34.0); MEAN CORPUSCULAR VOLUME 97.6 fL (80-100); MEAN PLATELET VOLUME 9.6 fL (9.2-13.0); PLATELET COUNT 176 10/3/uL (150-400); RBC DISTRIBUTION WIDTH 16.5 % (12.0-16.0); RED CELL COUNT 3.29 10/6/uL (4.7-6.1); WHITE BLOOD CELLS 13.4 10/3/uL (4.5-10.5)
[2016-11-19 04:46] LABS: MANUAL DIFF YES %
[2016-11-19 04:51] LABS: CALCIUM, SERUM 8.6 MG/DL (8.5-10.4); CHLORIDE, SERUM 97 MMOL/L (96-112); CO2 (CARBON DIOXIDE) 32 MMOL/L (24-34); CREATININE 0.98 MG/DL (0.70-1.30); GFR AFRICAN AMERICAN 85 ML/MIN (>=60); GFR NON AFRICAN AMERICAN 73 ML/MIN (>=60); GLUCOSE, SERUM 133 MG/DL (60-99); POTASSIUM, SERUM 3.7 MMOL/L (3.5-5.3); SODIUM, SERUM 139 MMOL/L (135-148)
[2016-11-19 05:01] LABS: BUN (BLOOD UREA NITROGEN) 29 MG/DL (6-23)
[2016-11-19 05:16] LABS: BAND NEUTROPHILS 2 %; EOSINOPHILS 6 %; IMMATURE GRANS ABSOLUTE (CALC) 0.27 10/3/uL (0.0-0.11); LYMPHOCYTES 5 %; LYMPHOCYTES ABSOLUTE (CALC) 0.67 10/3/uL (0.67-4.30); METAMYELOCYTES 2 %; MONOCYTES 7 %; MONOCYTES ABSOLUTE (CALC) 0.94 10/3/uL (0.21-1.20); NEUTROPHILS ABSOLUTE (CALC) 10.72 10/3/uL (2.02-8.40); PLATELET ESTIMATE ADQ (ADEQUATE); RBC MORPHOLOGY NORM (NORMAL); SEGMENTED NEUTROPHIL (0) 78 %; TOTAL NUCLEATED CELLS 100
[2016-11-20 07:51] LABS: HEMATOCRIT 32.2 % (40.0-51.0); HEMOGLOBIN 10.5 g/dL (13.6-17.8); MEAN CORPUS HGB CONC 32.6 g/dL (32.0-36.0); MEAN CORPUSCULAR HEMOGLOB 31.8 pg (26.0-34.0); MEAN CORPUSCULAR VOLUME 97.6 fL (80-100); PLATELET COUNT 200 10/3/uL (150-400); RBC DISTRIBUTION WIDTH 16.8 % (12.0-16.0); WHITE BLOOD CELLS 11.7 10/3/uL (4.5-10.5)
[2016-11-20 07:59] LABS: MANUAL DIFF YES %
[2016-11-20 08:02] LABS: CALCIUM, SERUM 9.1 MG/DL (8.5-10.4); CHLORIDE, SERUM 100 MMOL/L (96-112); CO2 (CARBON DIOXIDE) 32 MMOL/L (24-34); GFR AFRICAN AMERICAN 98 ML/MIN (>=60); GFR NON AFRICAN AMERICAN 85 ML/MIN (>=60); GLUCOSE, SERUM 118 MG/DL (60-99); POTASSIUM, SERUM 3.6 MMOL/L (3.5-5.3); SODIUM, SERUM 140 MMOL/L (135-148)
[2016-11-20 08:03] LABS: BUN (BLOOD UREA NITROGEN) 22 MG/DL (6-23)
[2016-11-20 08:23] LABS: BAND NEUTROPHILS 2 %; EOSINOPHILS 4 %; EOSINOPHILS ABSOLUTE (CALC) 0.47 10/3/uL (0.0-0.53); IMMATURE GRANS ABSOLUTE (CALC) 0.12 10/3/uL (0.0-0.11); LYMPHOCYTES 2 %; LYMPHOCYTES ABSOLUTE (CALC) 0.23 10/3/uL (0.67-4.30); METAMYELOCYTES 1 %; MONOCYTES 10 %; MONOCYTES ABSOLUTE (CALC) 1.17 10/3/uL (0.21-1.20); NEUTROPHILS ABSOLUTE (CALC) 9.71 10/3/uL (2.02-8.40); PLATELET ESTIMATE ADQ (ADEQUATE); RBC MORPHOLOGY NORM (NORMAL); SEGMENTED NEUTROPHIL (0) 81 %; TOTAL NUCLEATED CELLS 100
[2016-11-21 07:59] LABS: BASOPHILS 0.1 %; BASOPHILS ABSOLUTE 0.01 10/3/uL (0.0-0.16); EOSINOPHILS ABSOLUTE 0.41 10/3/uL (0.0-0.53); HEMATOCRIT 30.4 % (40.0-51.0); IMMATURE GRANULOCYTES 2.3 %; IMMATURE GRANULOCYTES ABSOLUTE 0.24 10/3/uL (0.0-0.11); LYMPHOCYTES 11.1 %; LYMPHOCYTES ABSOLUTE 1.15 10/3/uL (0.67-4.30); MANUAL DIFF NO %; MEAN CORPUS HGB CONC 32.9 g/dL (32.0-36.0); MEAN CORPUSCULAR HEMOGLOB 31.8 pg (26.0-34.0); MEAN CORPUSCULAR VOLUME 96.8 fL (80-100); MEAN PLATELET VOLUME 9.7 fL (9.2-13.0); MONOCYTES 5.2 %; MONOCYTES ABSOLUTE 0.54 10/3/uL (0.21-1.20); NEUTROPHILS 77.3 %; NEUTROPHILS ABSOLUTE 7.97 10/3/uL (2.02-8.40); PLATELET COUNT 207 10/3/uL (150-400); RBC DISTRIBUTION WIDTH 16.9 % (12.0-16.0); RED CELL COUNT 3.14 10/6/uL (4.7-6.1); WHITE BLOOD CELLS 10.3 10/3/uL (4.5-10.5)
[2016-11-24 05:33] LABS: BASOPHILS 0.2 %; BASOPHILS ABSOLUTE 0.02 10/3/uL (0.0-0.16); EOSINOPHILS 5.3 %; EOSINOPHILS ABSOLUTE 0.48 10/3/uL (0.0-0.53); HEMATOCRIT 33.2 % (40.0-51.0); HEMOGLOBIN 10.7 g/dL (13.6-17.8); IMMATURE GRANULOCYTES 1.1 %; LYMPHOCYTES 12.3 %; LYMPHOCYTES ABSOLUTE 1.12 10/3/uL (0.67-4.30); MANUAL DIFF NO %; MEAN CORPUS HGB CONC 32.2 g/dL (32.0-36.0); MEAN CORPUSCULAR HEMOGLOB 31.8 pg (26.0-34.0); MEAN CORPUSCULAR VOLUME 98.5 fL (80-100); MEAN PLATELET VOLUME 9.6 fL (9.2-13.0); MONOCYTES 7.2 %; MONOCYTES ABSOLUTE 0.66 10/3/uL (0.21-1.20); NEUTROPHILS 73.9 %; NEUTROPHILS ABSOLUTE 6.76 10/3/uL (2.02-8.40); PLATELET COUNT 272 10/3/uL (150-400); RED CELL COUNT 3.37 10/6/uL (4.7-6.1); WHITE BLOOD CELLS 9.1 10/3/uL (4.5-10.5)
[2016-11-24 06:01] LABS: CALCIUM, SERUM 9.2 MG/DL (8.5-10.4); CHLORIDE, SERUM 102 MMOL/L (96-112); CO2 (CARBON DIOXIDE) 32 MMOL/L (24-34); CREATININE 0.76 MG/DL (0.70-1.30); GFR AFRICAN AMERICAN 101 ML/MIN (>=60); GFR NON AFRICAN AMERICAN 87 ML/MIN (>=60); GLUCOSE, SERUM 127 MG/DL (60-99); POTASSIUM, SERUM 4.1 MMOL/L (3.5-5.3); SODIUM, SERUM 141 MMOL/L (135-148)
[2016-11-24 06:03] LABS: BUN (BLOOD UREA NITROGEN) 12 MG/DL (6-23)
[2017-02-02] MEDS ORDERED: NEUR600 PO (16:34)
[2017-04-22] MEDS ORDERED: VITAMIN D2000 UNIT PO (13:50)
[2017-04-22] MEDS ORDERED: FERROUS SULF325 M1 PO (13:50)
[2017-04-22] MEDS ORDERED: CENTRUM PO (13:51)
[2017-04-22] MEDS ORDERED: VITC500 PO (13:53)
[2017-04-22] MEDS ORDERED: TUMSROLL PO (13:54)
[2017-06-01] MEDS ORDERED: LEVOTHYROXIN75 MCG PO (17:57)
[2017-06-01] MEDS ORDERED: FLORINEF0.1 MG PO (17:58)
[2017-06-01] MEDS ORDERED: GLUCOPHAGE1000 MG PO (17:59)
[2017-06-01] MEDS ORDERED: NEUR300 PO ×2 (17:59→18:02)
[2017-06-01] MEDS ORDERED: ZOCOR40 PO (17:59)
[2017-06-01] MEDS ORDERED: NTG150 SL (18:02)
[2017-06-01] MEDS ORDERED: ASAB PO (18:02)
== END 2016-11-24 13:48 | DRG 233 ==
LOC: ER 22:39 → CDU1 23:59 → SSU1 11-08 16:51 → 5NO 11-09 17:35 → SDC/OF 11-12 07:43 → CVICU 11-12 11:40 → IMCU 11-17 20:28 → 5NO 11-19 13:45
PROVIDERS: Anesthesiology; Hospitalist; Internal Medicine; Internal Medicine Cardiovascular Disease; Nurse Practitioner Acute Care; Nurse Practitioner Family; Thoracic Surgery (Cardiothoracic Vascular Surgery)
PROC: 4A023N7 Measurement of Cardiac Sampling and Pressure, Left Heart, Percutaneous Approach (ICD-10-PCS; 2016-11-08)
PROC: B2111ZZ Fluoroscopy of Multiple Coronary Arteries using Low Osmolar Contrast (ICD-10-PCS; 2016-11-08)
PROC: B2151ZZ Fluoroscopy of Left Heart using Low Osmolar Contrast (ICD-10-PCS; 2016-11-08)
PROC: B2131ZZ Fluoroscopy of Multiple Coronary Artery Bypass Grafts using Low Osmolar Contrast (ICD-10-PCS; 2016-11-08)
PROC: 5A1221Z Performance of Cardiac Output, Continuous (ICD-10-PCS; 2016-11-12)
PROC: B246ZZ4 Ultrasonography of Right and Left Heart, Transesophageal (ICD-10-PCS; 2016-11-12)
PROC: 30233K1 Transfusion of Nonautologous Frozen Plasma into Peripheral Vein, Percutaneous Approach (ICD-10-PCS; 2016-11-12)
PROC: 30233N1 Transfusion of Nonautologous Red Blood Cells into Peripheral Vein, Percutaneous Approach (ICD-10-PCS; 2016-11-12)
PROC: 30233R1 Transfusion of Nonautologous Platelets into Peripheral Vein, Percutaneous Approach (ICD-10-PCS; 2016-11-12)
PROC: 30233N0 Transfusion of Autologous Red Blood Cells into Peripheral Vein, Percutaneous Approach (ICD-10-PCS; 2016-11-12)
PROC: 30283B1 Transfusion of Nonautologous 4-Factor Prothrombin Complex Concentrate into Vein, Percutaneous Approach (ICD-10-PCS; principal; 2016-11-12 07:30)
PROC: 021209W Bypass Coronary Artery, Three Arteries from Aorta with Autologous Venous Tissue, Open Approach (ICD-10-PCS; 2016-11-12 07:30)
PROC: 5A02210 Assistance with Cardiac Output using Balloon Pump, Continuous (ICD-10-PCS; 2016-11-12 07:30)
PROC: 06BP3ZZ Excision of Right Saphenous Vein, Percutaneous Approach (ICD-10-PCS; 2016-11-12 07:30)
PROC: 0JPT3VZ Removal of Infusion Pump from Trunk Subcutaneous Tissue and Fascia, Percutaneous Approach (ICD-10-PCS; 2016-11-15)
DX: I21.4 Non-ST elevation (NSTEMI) myocardial infarction (principal); R57.0 Cardiogenic shock; J95.821 Acute postprocedural respiratory failure; K81.0 Acute cholecystitis; A04.7 Enterocolitis due to Clostridium difficile; N17.9 Acute kidney failure, unspecified; I25.810 Atherosclerosis of coronary artery bypass graft(s) without angina pectoris; I45.2 Bifascicular block; I25.10 Atherosclerotic heart disease of native coronary artery without angina pectoris; E11.9 Type 2 diabetes mellitus without complications; C67.9 Malignant neoplasm of bladder, unspecified; I10 Essential (primary) hypertension; E83.42 Hypomagnesemia; E78.5 Hyperlipidemia, unspecified; Y83.2 Surgical operation with anastomosis, bypass or graft as the cause of abnormal reaction of the patient, or of later complication, without mention of misadventure at the time of the procedure; Y92.239 Unspecified place in hospital as the place of occurrence of the external cause; Z88.8 Allergy status to other drugs, medicaments and biological substances; Z88.0 Allergy status to penicillin; Z90.49 Acquired absence of other specified parts of digestive tract; Z98.890 Other specified postprocedural states; Z83.3 Family history of diabetes mellitus; Z79.899 Other long term (current) drug therapy; Z79.82 Long term (current) use of aspirin; Z79.84 Long term (current) use of oral hypoglycemic drugs
CPT/HCPCS: 31720; 33971; 36415; 71010; 71275; 74170; 74175; 74176; 74177; 80048; 80053; 80061; 80076; 81001; 82330; 82533; 82803; 82805; 82947; 82962; 83036; 83540; 83550; 83605; 83690; 83735; 84100; 84132; 84295; 84484; 85014; 85018; 85025; 85049; 85347; 85384; 85576; 85576-59; 85610; 85730; 86850; 86900; 86901; 86920; 87070; 87205; 87493; 87493-59; 87641; 93005; 93306; 93312; 93320; 93325; 93459; 93880; 94002; 94003; 94640; 94660; 94770; 96374; 96375; 97110-GO; 97110-GP; 97162-GP; 97166-GO; 97530-GP; 99285; A9270-GY; C1713; C1751; C1760; C1769; C1781; C1894; C9113; C9132; G0365; J0282; J0360; J0690; J0692; J1170; J1644; J1940; J1956; J2150; J2250; J2260; J2370; J2405; J2440; J2720; J2930; J3010; J3370; J3475; J3480; P9016; P9035; P9045; P9047; P9059; Q9967

== ENCOUNTER 2017-02-07 07:28 | Day surgery (SDC) | payer MEDICARE ==
[2017-02-03 14:03] LABS: HEMOGLOBIN 12.7 g/dL (13.6-17.8)
[2017-02-03 14:04] LABS: HEMATOCRIT 41.3 % (40.0-51.0)
[2017-02-03 14:16] LABS: A/G RATIO 1.4 (0.7-1.9); ALBUMIN 3.7 G/DL (3.5-5.0); CALCIUM, SERUM 9.7 MG/DL (8.5-10.4); CHLORIDE, SERUM 110 MMOL/L (96-112); CO2 (CARBON DIOXIDE) 31 MMOL/L (24-34); CREATININE 1.01 MG/DL (0.70-1.30); GFR AFRICAN AMERICAN 82 ML/MIN (>=60); GFR NON AFRICAN AMERICAN 70 ML/MIN (>=60); GLOBULIN 2.6 G/DL (2.5-4.1); SGOT(AST) 14 U/L (5-40); SGPT(ALT) 17 U/L (5-65); SODIUM, SERUM 146 MMOL/L (135-148); TOTAL PROTEIN 6.3 G/DL (6.0-8.5)
[2017-02-03 14:17] LABS: ALKALINE PHOSPHATASE 79 U/L (45-117); BUN (BLOOD UREA NITROGEN) 16 MG/DL (6-23); GLUCOSE, SERUM 87 MG/DL (60-99); POTASSIUM, SERUM 5.5 MMOL/L (3.5-5.3); TOTAL BILIRUBIN 1.2 MG/DL (0-1.2)
--- NOTE | ~2017-02-07 | OP ---
Record Of Operation [facility] [address] [place]. [address] NAME: NICOLE SMITH JR : 39 STATUS : [facility]#: [id number] AGE: 81 ADM/REG DATE : 02/07/17 MR#: [id number] REPORT SERV DATE: 02/07/17 DICTATED BY: SHERIF ROLLINS DATE: 02/07/17 REPORT STATUS : Draft TRANSCRIBED BY: MODJanis DATE: 02/07/17 DATE OF PROCEDURE: 02/07/2017 PREOPERATIVE DIAGNOSIS: Symptomatic cholelithiasis. POSTOPERATIVE DIAGNOSES: 1. Acute on chronic cholecystitis. 2. Cholelithiasis. PROCEDURE: Laparoscopic cholecystectomy. ANESTHESIA: General endotracheal anesthesia and local anesthesia. CHIEF RESIDENT SURGEON: Mili Kong M.D. BLOOD LOSS: Less than 5 mL. SPECIMENS: Gallbladder. COMPLICATIONS: None. INDICATION: Mr. Smith is a 81-year-old male who three months ago underwent open heart surgery. He was noted at that time to have gallstones and he had complained of some intermittent right-sided right upper quadrant abdominal pain. He was offered laparoscopic cholecystectomy. Risks and benefits were discussed with the patient as well as alternatives. Questions were sought and answered, and the patient wished to proceed. DESCRIPTION OF OPERATION: The patient was brought to the operating room and placed supine on the operating table. After the satisfactory induction of general endotracheal anesthesia, the patient's abdomen was prepped and draped in the usual sterile fashion. A time-out was performed with all operating staff present. The patient received appropriate preoperative antibiotics. We began by making an incision through the inferior aspect of the umbilicus with a scalpel, dissecting down to the fascia using blunt dissection. A fascia was grasped on either side in the midline with hemostats and elevated and then incised with a scalpel. First, a Joanna and then a surgeon's digit were inserted into the abdomen to ensure intra- abdominal placement. Once this was confirmed, a 12 mm Origin trocar was placed into the abdomen and the fascia and a Bishop. The intra-abdominal balloon was then inflated and the abdomen was insufflated to a pressure of 15 mmHg with carbon dioxide gas. The laparoscope was inserted. The intra-abdominal contents were inspected for injury during trocar placement and none were noted. We then placed the patient into the reverse Trendelenburg right side up position and three more trocars were placed along the right subcostal margin, a 10 mm trocar in the subxiphoid region, a 5 mm trocar in the midclavicular line, and also a 5 mm trocar laterally. Prior to each trocar placement, an incision was made with a scalpel and the trocars were placed under direct visualization with the laparoscope. The gallbladder, initially only a small portion of the dome was able to be visualized due to the appearance of chronic inflammation with some acute features. The omentum was adhered to Record Of Operation [facility] [address] [place]. [address] NAME: NICOLE SMITH JR : 39 STATUS : [facility]#: [id number] AGE: 81 ADM/REG DATE : 02/07/17 MR#: [id number] REPORT SERV DATE: 02/07/17 DICTATED BY: SHERIF ROLLINS DATE: 02/07/17 REPORT STATUS : Draft TRANSCRIBED BY: NICK DATE: 02/07/17 this. We therefore took down the omental adhesions with a combination of blunt dissection as well as cautery. There appeared to be a necrotic aspect on the left side of the gallbladder. The gallbladder was very distended and therefore aspirating needle was used to aspirate the contents of the gallbladder. This appeared to be thick, sludgy, greenish-black bile. Once we had aspirated the gallbladder with an aspirating needle, this was retracted up and over the liver. The gallbladder was grasped at the infundibulum, and then slowly using a combination of blunt dissection with [place] as well as hook electrocautery, we were able to expose the cystic duct and the cystic artery. Once we had achieved a critical view of safety, we clipped the cystic artery twice proximally and once distally and divided this with scissors. This allowed us to get to the little bit more length on our cystic duct. Again, we had already had a critical view of safety. This appeared to be a very short cystic duct with a lot of chronic inflammation. The cystic duct was milked back and there was no large stone felt within the lumen of the cystic duct. We then placed two clips distally and one clip proximally. I then divided this with scissors. We then proceeded to try to take the gallbladder off the liver bed. What we found was that there was not only the small necrotic portion on the left extrahepatic portion of the gallbladder but that the actual posterior wall all along the left side was also necrotic. Given this and the subacute nature of the inflammation, we were forced to leave the posterior aspect of the gallbladder adhered to the liver bed. The rest of the gallbladder was removed with hook electrocautery and placed into a laparoscopic retrieval bag. We then proceeded to turn the Bovie to 80 and cauterized the posterior wall of the gallbladder, which had been left in situ. The gallbladder fossa was copiously irrigated and the effluent was suctioned until it returned clear. Due to the amount of inflammation, we elected to leave a drain. A round Quinton drain was then inserted through the lateral most trocar site and left under the liver. This was secured with a drain stitch of Prolene. Additionally, for further hemostasis assurance, we placed Kaleigh within the gallbladder cavity. We then brought the gallbladder out through the umbilical port site. This was passed off the table as a specimen. We then further suctioned over the gallbladder making sure the fluid returned clear. We then removed the two remaining subxiphoid and midclavicular trocars under direct visualization with the laparoscoped and then the umbilical trocar site was also removed and the gallbladder was removed through the umbilical site with it. All incisions were irrigated. The fascial edges were reapproximated using 0 Vicryl on a UR6 in a [id number] fashion. All incisions were irrigated and the skin edges were then reapproximated using 4-0 Monocryl in simple subcuticular fashion. Sterile dressing and Band-Aids were placed. The patient tolerated the procedure well. He was able to be extubated in the operating room and transferred to PACU in stable condition. The COSME was placed to bulb suction. Dr. Rollins, the attending, was present and scrubbed for the entirety of the case. DICTATED BY: Mili Kong MD SE/NICK Sherif Rollins M.D. Record Of [address] [address] NAME: NICOLE SMITH JR : 39 STATUS : [facility] PAT#: [id number] AGE: 81 ADM/REG DATE : 02/07/17 MR#: [id number] REPORT SERV DATE: 02/07/17 DICTATED BY: SHERIF ROLLINS DATE: 02/07/17 REPORT STATUS : Draft TRANSCRIBED BY: MODL DATE: 02/07/17 / [id number] CC: Dami Medina Jr., D.OSarah
[~2017-02-07 07:28] MED LIST changes: +CRANBERRY425 MG PO; +NEUR600 PO; +NORCO1 TA1 PO; +PCET PO; +TOPXL25 PO
[2017-04-22] MEDS ORDERED: VITAMIN D2000 UNIT PO (13:50)
[2017-04-22] MEDS ORDERED: FERROUS SULF325 M1 PO (13:50)
[2017-04-22] MEDS ORDERED: CENTRUM PO (13:51)
[2017-04-22] MEDS ORDERED: VITC500 PO (13:53)
[2017-04-22] MEDS ORDERED: TUMSROLL PO (13:54)
[2017-06-01] MEDS ORDERED: LEVOTHYROXIN75 MCG PO (17:57)
[2017-06-01] MEDS ORDERED: FLORINEF0.1 MG PO (17:58)
[2017-06-01] MEDS ORDERED: GLUCOPHAGE1000 MG PO (17:59)
[2017-06-01] MEDS ORDERED: NEUR300 PO ×2 (17:59→18:02)
[2017-06-01] MEDS ORDERED: ZOCOR40 PO (17:59)
[2017-06-01] MEDS ORDERED: NTG150 SL (18:02)
[2017-06-01] MEDS ORDERED: ASAB PO (18:02)
== END 2017-02-07 14:14 | disposition home or self-care (01) ==
LOC: SDC 07:28
PROVIDERS: Specialist
PROC: 0FT44ZZ Resection of Gallbladder, Percutaneous Endoscopic Approach (ICD-10-PCS; principal; 2017-02-07 08:45)
DX: K80.12 Calculus of gallbladder with acute and chronic cholecystitis without obstruction (principal); K82.8 Other specified diseases of gallbladder; I10 Essential (primary) hypertension; I25.10 Atherosclerotic heart disease of native coronary artery without angina pectoris; I25.2 Old myocardial infarction; E11.42 Type 2 diabetes mellitus with diabetic polyneuropathy; E78.00 Pure hypercholesterolemia, unspecified; E03.9 Hypothyroidism, unspecified; M19.90 Unspecified osteoarthritis, unspecified site; M25.512 Pain in left shoulder; M25.511 Pain in right shoulder; H91.93 Unspecified hearing loss, bilateral; F41.9 Anxiety disorder, unspecified; Z87.442 Personal history of urinary calculi; Z95.1 Presence of aortocoronary bypass graft; Z88.0 Allergy status to penicillin; Z88.8 Allergy status to other drugs, medicaments and biological substances; Z79.82 Long term (current) use of aspirin; Z79.52 Long term (current) use of systemic steroids; Z79.84 Long term (current) use of oral hypoglycemic drugs; Z79.899 Other long term (current) drug therapy; Z90.89 Acquired absence of other organs; Z97.4 Presence of external hearing-aid; Z96.651 Presence of right artificial knee joint; Z87.81 Personal history of (healed) traumatic fracture; Z87.828 Personal history of other (healed) physical injury and trauma; Z90.49 Acquired absence of other specified parts of digestive tract; Z98.890 Other specified postprocedural states; Z85.51 Personal history of malignant neoplasm of bladder; Z92.3 Personal history of irradiation
CPT/HCPCS: 36415; 80053; 82962; 85014; 85018; 88304; 93005; C1726; J0690; J0694; J2370; J2405; J2710; J3010; Q9967